=== PATIENT | male | born 1940 ===

== ENCOUNTER 2018-04-06 13:25 | Inpatient (IN) | payer OTHER ==
[2018-04-06] MEDS ORDERED: Sodium Chloride 0.9% 500 ML IV STA (13:57)
[2018-04-06] MEDS ORDERED: Sodium Chloride 0.9% 1,000 ML IV STA ×3 (13:58→16:55)
--- NOTE | 2018-04-06 14:08 | ED PDOC ---
HPI: Trauma/Fall - HPI Time Seen by Provider: 04/06/18 13:44 Chief Complaint (Nursing): Trauma Chief Complaint (Provider): Trauma History/Exam Limitations: no limitations Onset/Duration Of Symptoms: Days (x1) Additional Complaint(s): Josr Saeed is a 77 y/o male with no significant past medical history who presents to the ED for evaluation after a fall. Patient was found by homemaker on the floor after he fell of his bed at 14:00 yesterday. Patient denies any headache, chest pain, and has no active complaints. 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 PMD: Dr. Darin Devine Past Medical History Reviewed: Historical Data, Nursing Documentation, Vital Signs Vital Signs: Last Vital Signs Temp 99.2 F 04/06/18 14:03 Pulse 127 H 04/06/18 14:03 Resp 15 04/06/18 14:03 BP 155/90 H 04/06/18 14:03 Pulse Ox 95 04/06/18 14:03 - Medical History PMH: No Chronic Diseases - Family History Family History: States: Unknown Family Hx - Allergies Allergies/Adverse Reactions: Allergies Allergy/AdvReac Type Severity Reaction Status Date / Time No Known Allergies Allergy Verified 04/06/18 13:34 Review of Systems ROS Statement: Except As Marked, All Systems Reviewed And Found Negative Constitutional: Negative for: Fever Cardiovascular: Negative for: Chest Pain Neurological: Positive for: Weakness (right side). Negative for: Headache Physical Exam - Reviewed Nursing Documentation Reviewed: Yes Vital Signs Reviewed: Yes - Physical Exam Appears: Positive for: No Acute Distress Head Exam: Positive for: ATRAUMATIC, NORMOCEPHALIC Eye Exam: Positive for: Other (constricted pupils bilaterally) Neck: Positive for: Normal, Painless ROM (nontender), Trachea Midline (no midline tenderness) Cardiovascular/Chest: Positive for: Tachycardia (but regular) Respiratory: Positive for: Normal Breath Sounds. Negative for: Respiratory Distress Back: Positive for: Other (ecchymosis on right buttock that looks old). Negative for: L CVA Tenderness, R CVA Tenderness, Vertebral Tenderness Extremity: Positive for: Normal ROM, Other (no hip pain; pelvis stable on rocking) Neurologic/Psych: Positive for: Alert, Oriented - Laboratory Results Result Diagrams: 04/06/18 14:12 04/06/18 14:12 - ECG Interpretation Of ECG: ST @ 128, LAFB, LVH. O2 Sat by Pulse Oximetry: 95 (RA) Pulse Ox Interpretation: Normal Medical Decision Making Medical Decision Making: Time: 13:52 Initial Impression: Fall, r/o Rhabdomyolysis Initial Plan: --VBG --CT - Cervical spine w/o contrast --CT - Head w/o contrast --EKG --CMP --CPK --CBC with differential --PTT --Prothrombin time --CXR --Tylenol 650 mg --Blood culture Time: 15:17 CXR FINDINGS: LUNGS: Coarsened/increased interstitial markings. There is also a localized area of atelectasis and or scarring left CP angle region. PLEURA: No pneumothorax or pleural fluid seen. CARDIOVASCULAR: Heart appears mildly enlarged OSSEOUS STRUCTURES: No significant abnormalities. VISUALIZED UPPER ABDOMEN: Normal. OTHER FINDINGS: None. IMPRESSION: Coarsened/ increased interstitial markings. Atelectasis and or scarring left CP angle region. Time: 15:24 CT - Head FINDINGS: HEMORRHAGE: No intracranial hemorrhage. BRAIN: Moderate diffuse/ confluent chronic periventricular white matter ischemic changes seen extending peripherally into the deep and subcortical white matter both cerebral hemispheres. There is also extension of these changes into the white matter tracts of both basal nuclei with scattered more discrete chronic likely. Moderate generalized volume loss. VENTRICLES: Unremarkable. No hydrocephalus. CALVARIUM: No obvious calvarial fractures. Right supraorbital and right frontal scalp swelling. PARANASAL SINUSES: Unremarkable as visualized. No significant inflammatory changes. MASTOID AIR CELLS: Unremarkable as visualized. No inflammatory changes. OTHER FINDINGS: Changes of bilateral cataract surgery. IMPRESSION: Normal CT of the Head. Time: 15:47 CT Spine FINDINGS: VERTEBRAE: No acute compression fractures nor retropulsed fragments. DISCS/SPINAL CANAL/NEURAL FORAMINA: Multilevel degenerative spondylosis. At the C3-C4 level, there is mild posterior disc space narrowing. No disc herniation or significant disc bulge. The significant right-sided facet arthropathy. Minor left facet overgrowth. Minimal degenerative squaring of the uncovertebral joints more so on the right side. Right exit foramen appears narrowed. At the C4-C5 level, there is also minor disc space narrowing with significant and minor left-sided hypertrophic facet joint changes. Right exit foramen is stenotic. Left exit foramen is marginal to adequate. At the C5-C6 level, there is marked disc space narrowing with endplate eburnation and subchondral sclerosis. Small broad-based osteophytic ridge disc complex contiguous with hyper trophic uncovertebral joints. Facets also hypertrophic. Exit foramina appear narrowed on the left and adequate on the right. PARASPINAL SOFT TISSUES: Unremarkable. OTHER FINDINGS: Vascular calcifications both carotid arteries. There Appears to be mild biapical pleural thickening and some adjacent parenchymal scarring changes. IMPRESSION: The no acute fractures. Multilevel degenerative spondylosis as described. . Time: 16:20 RAD - Hip FINDINGS: BONES: Normal. No fracture. JOINTS: Mild degenerative osteoarthritis both hip joints with joint space narrowing more so on the left side and subchondral sclerosis along both acetabular roofs. SOFT TISSUES: Normal. OTHER FINDINGS: None. IMPRESSION: No evidence of acute displaced fracture nor dislocation. Save Mild degenerative osteoarthritis both hip joints left greater than right. Scribe Attestation: Documented by Joey Goodwin, acting as a scribe for Paula Morales MD. Provider Scribe Attestation: All medical record entries made by the Scribe were at my direction and personally dictated by me. I have reviewed the chart and agree that the record accurately reflects my personal performance of the history, physical exam, medical decision making, and the department course for this patient. I have also personally directed, reviewed, and agree with the discharge instructions and disposition. Disposition - Clinical Impression Clinical Impression: Rhabdomyolysis, Elevated troponin - Patient ED Disposition Is Patient to be Admitted: Yes - Disposition Disposition Time: 16:55 Condition: STABLE - Pt Status Changed To: Hospital Disposition Of: Inpatient - Admit Certification Admit to Inpatient:: After my assessment, the patient will require hospitalization for at least two midnights. This is because of the severity of symptoms shown, intensity of services needed, and/or the medical risk in this patient being treated as an outpatient. - POA Present On Arrival: Falls Or Trauma
[2018-04-06 14:26] LABS: VENOUS BLOOD GAS BASE EXCESS -14.1 mmol/L (0.0-2.0); VENOUS BLOOD GAS PCO2 48 mmHg (40-60); VENOUS BLOOD GAS PO2 48 mm/Hg (30-55); VENOUS BLOOD PH 7.11 (7.32-7.43)
[2018-04-06 14:51] LABS: BASO % 0.2 % (0.0-2.0); HEMOGLOBIN 18.1 g/dL (12.0-18.0); LYMPH # 1.8 K/uL (1.0-4.3); LYMPH % 12.4 % (20.0-40.0); MEAN CELL VOLUME 93.9 fl (80.0-94.0); MEAN CORPUSCULAR HEMOGLOBIN 32.2 pg (27.0-31.0); MEAN CORPUSCULAR HGB CONC 34.2 g/dL (33.0-37.0); MEAN PLATELET VOLUME 9.1 fl (7.2-11.7); MONO # 1.4 K/uL (0.0-0.8); MONO % 9.9 % (0.0-10.0); NEUT # 11.2 K/uL (1.8-7.0); NEUT % 77.5 % (50.0-75.0); NRBC % 0.2 % (0.0-0.0); RBC 5.62 Mil/uL (4.40-5.90); RED CELL DISTRIBUTION WIDTH 14.8 % (11.5-14.5); WHITE BLOOD COUNT 14.5 K/uL (4.8-10.8)
[2018-04-06 15:05] LABS: INR 1.1 (0.9-1.2); PARTIAL THROMBOPLASTIN TIME 30.8 Seconds (25.6-37.1); PROTHROMBIN TIME 11.8 Seconds (9.8-13.1)
[2018-04-06 15:08] LABS: ALB/GLOB RATIO 1.2 (1.0-2.1); ALBUMIN 4.7 g/dL (3.5-5.0); CALCIUM 10.2 mg/dL (8.4-10.2)
--- NOTE | 2018-04-06 15:19 | RAD ---
Date of service: 04/06/2018 PROCEDURE: CHEST RADIOGRAPH, 1 VIEW HISTORY: Fall COMPARISON: None available. FINDINGS: LUNGS: Coarsened/increased interstitial markings. There is also a localized area of atelectasis and or scarring left CP angle region. PLEURA: No pneumothorax or pleural fluid seen. CARDIOVASCULAR: Heart appears mildly enlarged OSSEOUS STRUCTURES: No significant abnormalities. VISUALIZED UPPER ABDOMEN: Normal. OTHER FINDINGS: None. IMPRESSION: Coarsened/ increased interstitial markings. Atelectasis and or scarring left CP angle region.
--- NOTE | 2018-04-06 15:26 | CT ---
Date of service: 04/06/2018 PROCEDURE: CT HEAD WITHOUT CONTRAST. HISTORY: Fall COMPARISON: None available. TECHNIQUE: Axial computed tomography images were obtained through the head/brain without intravenous contrast. Radiation dose: Total exam DLP = 853.44 mGy-cm. This CT exam was performed using one or more of the following dose reduction techniques: Automated exposure control, adjustment of the mA and/or kV according to patient size, and/or use of iterative reconstruction technique. FINDINGS: HEMORRHAGE: No intracranial hemorrhage. BRAIN: Moderate diffuse/ confluent chronic periventricular white matter ischemic changes seen extending peripherally into the deep and subcortical white matter both cerebral hemispheres. There is also extension of these changes into the white matter tracts of both basal nuclei with scattered more discrete chronic likely. Moderate generalized volume loss. VENTRICLES: Unremarkable. No hydrocephalus. CALVARIUM: No obvious calvarial fractures. Right supraorbital and right frontal scalp swelling. PARANASAL SINUSES: Unremarkable as visualized. No significant inflammatory changes. MASTOID AIR CELLS: Unremarkable as visualized. No inflammatory changes. OTHER FINDINGS: Changes of bilateral cataract surgery. IMPRESSION: Normal CT of the Head.
--- NOTE | 2018-04-06 15:49 | CT ---
Date of service: 04/06/2018 PROCEDURE: CT Cervical Spine without contrast HISTORY: Fall COMPARISON: None available. TECHNIQUE: Axial computed tomography images were obtained of the cervical spine without the use of intravenous contrast. Coronal and sagittal reformatted images were created and reviewed. Radiation dose: Total exam DLP = 461.58 mGy-cm. This CT exam was performed using one or more of the following dose reduction techniques: Automated exposure control, adjustment of the mA and/or kV according to patient size, and/or use of iterative reconstruction technique. FINDINGS: VERTEBRAE: No acute compression fractures nor retropulsed fragments. DISCS/SPINAL CANAL/NEURAL FORAMINA: Multilevel degenerative spondylosis. At the C3-C4 level, there is mild posterior disc space narrowing. No disc herniation or significant disc bulge. The significant right-sided facet arthropathy. Minor left facet overgrowth. Minimal degenerative squaring of the uncovertebral joints more so on the right side. Right exit foramen appears narrowed. At the C4-C5 level, there is also minor disc space narrowing with significant and minor left-sided hypertrophic facet joint changes. Right exit foramen is stenotic. Left exit foramen is marginal to adequate. At the C5-C6 level, there is marked disc space narrowing with endplate eburnation and subchondral sclerosis. Small broad-based osteophytic ridge disc complex contiguous with hyper trophic uncovertebral joints. Facets also hypertrophic. Exit foramina appear narrowed on the left and adequate on the right. PARASPINAL SOFT TISSUES: Unremarkable. OTHER FINDINGS: Vascular calcifications both carotid arteries. There Appears to be mild biapical pleural thickening and some adjacent parenchymal scarring changes. IMPRESSION: The no acute fractures. Multilevel degenerative spondylosis as described. .
--- NOTE | 2018-04-06 16:22 | RAD ---
PROCEDURE: Right Hip Radiographs. HISTORY: Fall COMPARISON: None. FINDINGS: BONES: Normal. No fracture. JOINTS: Mild degenerative osteoarthritis both hip joints with joint space narrowing more so on the left side and subchondral sclerosis along both acetabular roofs. SOFT TISSUES: Normal. OTHER FINDINGS: None. IMPRESSION: No evidence of acute displaced fracture nor dislocation. Save Mild degenerative osteoarthritis both hip joints left greater than right.
[2018-04-06 17:06] LABS: GRANULAR CAST 3 /lpf (0-1); SQUAMOUS EPITHIAL < 1 /hpf (0-5); URINE AMORPHOUS SEDIMENT RARE /ul (<OCC); URINE BACTERIA RARE (<OCC); URINE BILIRUBIN NEGATIVE (NEGATIVE); URINE BLOOD LARGE (NEGATIVE); URINE CLARITY CLOUDY (Clear); URINE COLOR AMBER (YELLOW); URINE GLUCOSE (UA) NEG (Normal); URINE LEUKOCYTE ESTERASE NEG Leu/uL (Negative); URINE PROTEIN 100 mg/dL (NEGATIVE); URINE UROBILINOGEN 0.2-1.0 mg/dL (0.2-1.0)
[2018-04-06] MEDS ORDERED: Fluconazole 150 MG TAB PO STA (17:17)
--- NOTE | 2018-04-06 17:24 | CP.PCM.HP ---
History of Present Illness - History of Present Illness History of Present Illness: 77 yo male with history of HTN and previous CVA fell from his bed yesterday around 2pm and was unable to get up until homemaker found him on the floor this morning. Patient denied LOC or getting injured from the fall. He has been bed bound since suffering from stroke leaving him with slurred speech and right sided weakness. There was no chest pain, SOB or dizziness. Present on Admission - Present on Admission Any Indicators Present on Admission: No History of DVT/PE: No History of Uncontrolled Diabetes: No Urinary Catheter: No Decubitus Ulcer Present: No Review of Systems - Review of Systems All systems: reviewed and no additional remarkable complaints except (aside from those mentioned above, 12 point system review were negative by me) Past Patient History - Tetanus Immunizations Tetanus Immunization: Unknown - Past Social History Smoking Status: Never Smoked Chewing Tobacco Use: No Cigar Use: No Alcohol: None Drugs: Denies Home Situation {Lives}: Alone - CARDIAC Hx Hypertension: Yes - PULMONARY Hx Respiratory Disorders: No - NEUROLOGICAL HX Cerebrovascular Accident: Yes - HEENT Hx HEENT Problems: No - RENAL Hx Chronic Kidney Disease: No - ENDOCRINE/METABOLIC Hx Endocrine Disorders: No - HEMATOLOGICAL/ONCOLOGICAL Hx Blood Disorders: No - INTEGUMENTARY Hx Dermatological Problems: No - MUSCULOSKELETAL/RHEUMATOLOGICAL Hx Musculoskeletal Disorders: No - GASTROINTESTINAL Hx Gastrointestinal Disorders: No - GENITOURINARY/GYNECOLOGICAL Hx Genitourinary Disorders: No - PSYCHIATRIC Hx Psychophysiologic Disorder: No Hx Substance Use: No - SURGICAL HISTORY Hx Surgeries: No - ANESTHESIA Hx Anesthesia: No Meds Allergies/Adverse Reactions: Allergies Allergy/AdvReac Type Severity Reaction Status Date / Time No Known Allergies Allergy Verified 04/06/18 13:34 Physical Exam - Constitutional Appears: No Acute Distress - Head Exam Head Exam: ATRAUMATIC - Eye Exam Eye Exam: absent: Scleral icterus - ENT Exam ENT Exam: Mucous Membranes Moist - Neck Exam Neck exam: Negative for: Meningismus - Respiratory Exam Respiratory Exam: absent: Rales, Rhonchi, Wheezes, Respiratory Distress - Cardiovascular Exam Cardiovascular Exam: Tachycardia, +S1, +S2 - GI/Abdominal Exam GI & Abdominal Exam: Soft. absent: Tenderness - Rectal Exam Rectal Exam: Deferred - Extremities Exam Extremities exam: Negative for: calf tenderness, pedal edema - Back Exam Back exam: NORMAL INSPECTION - Neurological Exam Neurological exam: Alert, Oriented x3 - Psychiatric Exam Psychiatric exam: Normal Affect - Skin Skin Exam: Dry, Intact Results - Vital Signs Recent Vital Signs: Last Vital Signs Temp 98.3 F 04/06/18 15:42 Pulse 122 H 04/06/18 15:42 Resp 15 04/06/18 15:42 BP 129/76 04/06/18 15:42 Pulse Ox 95 04/06/18 17:10 - Labs Result Diagrams: 04/06/18 14:12 04/06/18 14:12 Labs: Laboratory Results - last 24 hr 04/06/18 04/06/18 04/06/18 14:00 14:12 14:12 WBC 14.5 H RBC 5.62 Hgb 18.1 H Hct 52.8 H MCV 93.9 MCH 32.2 H MCHC 34.2 RDW 14.8 H Plt Count 260 MPV 9.1 Neut % (Auto) 77.5 H Lymph % (Auto) 12.4 L Pike % (Auto) 9.9 Eos % (Auto) 0.0 Baso % (Auto) 0.2 Neut # (Auto) 11.2 H Lymph # (Auto) 1.8 Pike # (Auto) 1.4 H Eos # (Auto) 0.0 Baso # (Auto) 0.0 PT INR APTT pO2 VBG pH VBG pCO2 VBG HCO3 VBG Total CO2 VBG O2 Sat (Calc) VBG Base Excess Glucose Lactate FiO2 Blood Gas Comments Crit Value Called To Crit Value Called By Crit Value Read Back Blood Gas Notified Time Sodium 148 Potassium 4.5 Chloride 111 H Carbon Dioxide 17 L Anion Gap 25 H BUN 46 H Creatinine 1.7 H Est GFR ( Amer) 47 Est GFR (Non-Af Amer) 39 POC Glucose (mg/dL) 150 H Random Glucose 162 H Calcium 10.2 Total Bilirubin 1.3 AST 831 H ALT 253 H Alkaline Phosphatase 179 H Total Creatine Kinase 09162 H Total Protein 8.5 H Albumin 4.7 Globulin 3.8 Albumin/Globulin Ratio 1.2 Urine Color Urine Clarity Urine pH Ur Specific [place] Urine Protein Urine Glucose (UA) Urine Ketones Urine Blood Urine Nitrate Urine Bilirubin Urine Urobilinogen Ur Leukocyte Esterase Urine RBC (Auto) Ur Squamous Epith Cells Amorphous Sediment Urine Bacteria Granular Casts (Auto) Urine Yeast (Budding) 04/06/18 04/06/18 04/06/18 14:12 14:16 16:50 WBC RBC Hgb Hct MCV MCH MCHC RDW Plt Count MPV Neut % (Auto) Lymph % (Auto) Pike % (Auto) Eos % (Auto) Baso % (Auto) Neut # (Auto) Lymph # (Auto) Pike # (Auto) Eos # (Auto) Baso # (Auto) PT 11.8 INR 1.1 APTT 30.8 pO2 48 VBG pH 7.11 L* VBG pCO2 48 VBG HCO3 13.1 VBG Total CO2 16.7 L VBG O2 Sat (Calc) 78.8 H VBG Base Excess -14.1 L Glucose 164 H Lactate 3.0 H FiO2 21.0 Blood Gas Comments Lact=3.0 Crit Value Called To dorian Reid Crit Value Called By 22 Crit Value Read Back Y Blood Gas Notified Time 1425 Sodium 124.0 L Potassium Chloride 101.0 Carbon Dioxide Anion Gap BUN Creatinine Est GFR ( Amer) Est GFR (Non-Af Amer) POC Glucose (mg/dL) Random Glucose Calcium Total Bilirubin AST ALT Alkaline Phosphatase Total Creatine Kinase Total Protein Albumin Globulin Albumin/Globulin Ratio Urine Color Noemi Urine Clarity Cloudy Urine pH 5.0 Ur Specific [place] 1.021 Urine Protein 100 Urine Glucose (UA) Neg Urine Ketones 20 Urine Blood Large Urine Nitrate Negative Urine Bilirubin Negative Urine Urobilinogen 0.2-1.0 Ur Leukocyte Esterase Neg Urine RBC (Auto) 3 Ur Squamous Epith Cells < 1 Amorphous Sediment Rare H Urine Bacteria Rare Granular Casts (Auto) 3 Urine Yeast (Budding) Few H Assessment & Plan - Assessment and Plan (Free Text) Assessment: 77 yo male with history of HTN and previous CVA fell from his bed yesterday around 2pm and was unable to get up until homemaker found him on the floor this morning. Patient denied LOC or getting injured from the fall. He has been bed bound since suffering from stroke leaving him with slurred speech and right sided weakness. There was no chest pain, SOB or dizziness. 1. Rhabdomyolysis IV hydration with NSS 150cc/hr repeat CPK 2. Elevated Troponin Troponin q 8 hrs x 2 EKG: sinus tach with left ant fascicular block no previous EKG on board to compare with ASA 325mg PO Lopressor 50mg PO q 12hrs cardiology consult with Dr JDamle 3. Leukocytosis probably reactive and also from volume depletion repeat CBC in am 4. HTN BP stable on Lopressor 50mg PO q 12hrs 5. DVT prophylaxis venodyne boots while in bed
[2018-04-06] MEDS: Sodium Chloride 0.45% 1,000 ML IV SCH (20:22)
[2018-04-07] MEDS: Sodium Chloride 0.45% 1,000 ML IV SCH ×2 (01:35→06:42)
[2018-04-07 06:31] LABS: BASO % 0.1 % (0.0-2.0); HEMOGLOBIN 14.9 g/dL (12.0-18.0); LYMPH # 1.7 K/uL (1.0-4.3); LYMPH % 15.4 % (20.0-40.0); MEAN CORPUSCULAR HEMOGLOBIN 32.5 pg (27.0-31.0); MEAN CORPUSCULAR HGB CONC 34.6 g/dL (33.0-37.0); MEAN PLATELET VOLUME 8.7 fl (7.2-11.7); MONO # 1.3 K/uL (0.0-0.8); MONO % 11.6 % (0.0-10.0); NEUT % 72.9 % (50.0-75.0); RBC 4.58 Mil/uL (4.40-5.90); RED CELL DISTRIBUTION WIDTH 14.7 % (11.5-14.5)
[2018-04-07 06:45] LABS: LDL CHOLESTEROL 81 mg/dL (0-129)
[2018-04-07 07:00] LABS: BLOOD UREA NITROGEN 32 mg/dl (9-20); CALCIUM 8.1 mg/dL (8.4-10.2); GFR AFRICAN-AMERICAN > 60; GFR NON-AFRICAN AMERICAN > 60; HDL CHOLESTEROL 26 MG/DL (30-70)
--- NOTE | 2018-04-07 08:12 | CP.PCM.PN ---
Subjective - Date & Time of Evaluation Date of Evaluation: 04/07/18 Time of Evaluation: 08:12 - Subjective Subjective: Pt was stable this morning and had no complaints on initial evaluation, denied chest pain sob calf tenderness ANATOMICAL EMBALMER was called later in the morning for acute pulmonary edema due to fluid overload and positioning. Patient desaturated to low 90s had tachypnea, tachycardia, normotensive and responded well to diuresis and is now comfortable and in no acute distress. hd stable. Objective - Vital Signs/Intake and Output Vital Signs (last 24 hours): Temp Pulse Resp BP Pulse Ox 98.3 F 118 H 18 155/79 H 96 04/07/18 07:53 04/07/18 07:53 04/07/18 07:53 04/07/18 07:53 04/07/18 07:53 Intake and Output: 04/07/18 04/07/18 06:59 18:59 Intake Total 2700 Output Total 1700 Balance 1000 Vitals Reviewed GEN: WDWN, alert, cooperative HEENT: NCAT, PERRL, EOMI HEART: RRR, +S1S2, NO MRG LUNG: crackles bilaterally ABD: soft, NT, ND, No HSM, No masses EXT: normal pedal pulses, normal capillary refill NEURO: awake, alert, no focal deficits SKIN: warm, dry PSYCH: normal mood, normal affect - Medications Medications: Current Medications Acetaminophen (Tylenol 325mg Tab) 650 mg PO Q6 PRN PRN Reason: Pain, Mild (1-3) Last Admin: 04/07/18 01:07 Dose: 650 mg Aspirin (Aspirin Chewable) 81 mg PO DAILY [facility] Clopidogrel Bisulfate (Plavix) 75 mg PO DAILY [facility] Docusate Sodium (Colace) 100 mg PO BID PRN PRN Reason: Constipation Sodium Chloride (Sodium Chloride 0.45%) 1,000 mls @ 200 mls/hr IV .Q5H IAN Stop: 04/07/18 11:14 Last Admin: 04/07/18 06:42 Dose: 200 mls/hr Pantoprazole Sodium (Protonix Ec Tab) 40 mg PO DAILY [facility] - Labs Labs: 04/07/18 04:20 04/07/18 04:20 PT 11.8 Seconds (9.8-13.1) 04/06/18 14:12 INR 1.1 (0.9-1.2) 04/06/18 14:12 APTT 30.8 Seconds (25.6-37.1) 04/06/18 14:12 Assessment and Plan - Assessment and Plan (Free Text) Plan: 77 yo male with history of HTN and previous CVA fell from his bed yesterday around 2pm and was unable to get up until homemaker found him on the floor this morning. Patient denied LOC or getting injured from the fall. He has been bed bound since suffering from stroke leaving him with slurred speech and right sided weakness. There was no chest pain, SOB or dizziness. 04/07: - ANATOMICAL EMBALMER called for acute pulmonary edema due to fluid overload and orthopnea during repositioning, patient was near trendelenberg. - He became mildly hypoxic, tachypneic, tachycardic, maintaining pressures. - He had received appx 4 liters of fluid over 24 hours. - ECHO showed combined systolic and diastolic dysfunction, patient responded well to lasix and is now comfortable. - Given hypoxia, tachycardia, rhabdo due to fall and extended down time, increasing risk for DVT, dimer was sent and was positive. CTA was negative for PE. - Patient is now saturating 98 on room air, no longer tachycardic. Patient was febrile 101.8, possibly due to stress reaction of acute pulm edema, as pt did not have any L shift/bands - procalcitonin is pending. - UA was neg on admission, CXR/CT no obvious infiltrates, all cultures collected and pending. - Lactic acid secondary to rhabdo. 1. Rhabdomyolysis holding hydration due to acute on chronic combined systolic and diastolic heart failure - gentle hydration tomorrow pending renal function per discussion with Cardiology Dr. Fontana, appreciated repeat CPK tomorrow lactic acidosis expected 2. Elevated Troponin Troponin q 8 hrs x 2 EKG: sinus tach with left ant fascicular block no previous EKG on board to compare with ASA 325mg PO Lopressor 50mg PO q 12hrs cardiology consult with Dr Cortés 3. Leukocytosis probably reactive and also from volume depletion repeat CBC in am 4. HTN BP stable on Lopressor 50mg PO q 12hrs 5. Acute Pulmonary edema received lasix resolved fever 101.8 likely secondary to stress reaction from acute pulmonary edema DVT prophylaxis venodyne boots while in bed
[2018-04-07] MEDS: Pantoprazole 40 mg EC Tab PO SCH (09:11)
[2018-04-07] MEDS: Metoprolol Succinate 25 mg XL Tab PO SCH (09:30)
--- NOTE | 2018-04-07 09:46 | CP.PCM.CON ---
History of Present Illness - History of Present Illness History of Present Illness: This 77-year-old man who has had a history of right hemiplegia with severe dysphasia, and has had a bed and chair bound existence for approximately 10 years came into the emergency room after being found on the floor following a fall when he could not help himself to get up. He spent more than 12 hours on the floor and was finally brought in by emergency manager of medical and police who forced their way through a locked door. The patient denies any palpitations or chest pains or symptoms of congestive cardiac failure. He denies any history of diabetes and denies previous falls. Physical examination shows an elderly man who has significant speech deficit but he is able to understand and express himself quite well. He answers questions appropriately. He was afebrile and was able to breathe comfortably while propped up in bed with a respiratory rate of 16-18 breaths per minute and a heart rate of 88 bpm and regular. His blood pressure was 126/74 mmHg. His jugular venous pressure was mildly elevated and there was no edema over his lower extremity. His pedal pulses were well felt. There were no carotid bruits. Extremities were warm and nailbeds were pink. There was no central or peripheral cyanosis. There was no clubbing. The apex was not palpable. The first and second heart sounds were distant and a faint S3 gallop was audible. There were a few basal rales. Abdomen was soft and liver and spleen are not palpable. His electrocardiogram showed sinus tachycardia with QRS widths which was 110 ms. There were nonspecific ST-T wave changes and Q waves in V2 suggestive of an old septal wall myocardial infarction. His lab data showed marked dehydration at the time of admission to the hospital with hemoglobin and hematocrit of 18 g and 52% respectively with elevated creatinine at 1.7 mg percent the rest of his labs were noted. serum creatinine kinase was markedly elevated indicating rhabdomyolysis. His troponin levels were also elevated. Impression: Rhabdomyolysis secondary to skeletal muscle injury. Severe dehydration which appears to be resolving. 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 In the meantime I have withheld his intravenous fluids since his jugular venous pressure appears mildly elevated. Past Patient History - Tetanus Immunizations Tetanus Immunization: Unknown - Past Medical History & Family History Past Medical History?: Yes - Past Social History Smoking Status: Never Smoked - CARDIAC Hx Cardiac Disorders: Yes Hx Hypertension: Yes - PULMONARY Hx Respiratory Disorders: No - NEUROLOGICAL Hx Neurological Disorder: Yes HX Cerebrovascular Accident: Yes - HEENT Hx HEENT Problems: No - RENAL Hx Chronic Kidney Disease: No - ENDOCRINE/METABOLIC Hx Endocrine Disorders: No - HEMATOLOGICAL/ONCOLOGICAL Hx Blood Disorders: No - INTEGUMENTARY Hx Dermatological Problems: No - MUSCULOSKELETAL/RHEUMATOLOGICAL Hx Musculoskeletal Disorders: Yes Hx Falls: Yes Hx Rhabdomyolysis: Yes - GASTROINTESTINAL Hx Gastrointestinal Disorders: No - GENITOURINARY/GYNECOLOGICAL Hx Genitourinary Disorders: No - PSYCHIATRIC Hx Psychophysiologic Disorder: No Hx Substance Use: No - SURGICAL HISTORY Hx Surgeries: Yes Hx Cataract Extraction: Yes (bilateral) - ANESTHESIA Hx Anesthesia: Yes Hx Anesthesia Reactions: No Hx Malignant Hyperthermia: No Meds Allergies/Adverse Reactions: Allergies Allergy/AdvReac Type Severity Reaction Status Date / Time No Known Allergies Allergy Verified 04/06/18 13:34 - Medications Medications: Current Medications Acetaminophen (Tylenol 325mg Tab) 650 mg PO Q6 PRN PRN Reason: Pain, Mild (1-3) Last Admin: 04/07/18 01:07 Dose: 650 mg Aspirin (Aspirin Chewable) 81 mg PO DAILY [facility] Last Admin: 04/07/18 09:27 Dose: 81 mg Clopidogrel Bisulfate (Plavix) 75 mg PO DAILY [facility] Last Admin: 04/07/18 09:27 Dose: 75 mg Docusate Sodium (Colace) 100 mg PO BID PRN PRN Reason: Constipation Sodium Chloride (Sodium Chloride 0.45%) 1,000 mls @ 200 mls/hr IV .Q5H [facility] Stop: 04/07/18 11:14 Last Admin: 04/07/18 06:42 Dose: 200 mls/hr Metoprolol Succinate (Toprol Xl) 25 mg PO DAILY [facility] Last Admin: 04/07/18 09:30 Dose: 25 mg Pantoprazole Sodium (Protonix Ec Tab) 40 mg PO DAILY [facility] Last Admin: 04/07/18 09:11 Dose: 40 mg Results - Vital Signs Recent Vital Signs: Last Vital Signs Temp 98.3 F 04/07/18 07:53 Pulse 118 H 04/07/18 09:30 Resp 18 04/07/18 07:53 BP 155/79 H 04/07/18 09:30 Pulse Ox 96 04/07/18 07:53 - Labs Result Diagrams: 04/07/18 04:20 04/07/18 04:20 Labs: Laboratory Results - last 24 hr 04/06/18 04/06/18 04/06/18 14:00 14:12 14:12 WBC 14.5 H RBC 5.62 Hgb 18.1 H Hct 52.8 H MCV 93.9 MCH 32.2 H MCHC 34.2 RDW 14.8 H Plt Count 260 MPV 9.1 Neut % (Auto) 77.5 H Lymph % (Auto) 12.4 L [place] % (Auto) 9.9 Eos % (Auto) 0.0 Baso % (Auto) 0.2 Neut # (Auto) 11.2 H Lymph # (Auto) 1.8 [place] # (Auto) 1.4 H Eos # (Auto) 0.0 Baso # (Auto) 0.0 PT INR APTT pO2 VBG pH VBG pCO2 VBG HCO3 VBG Total CO2 VBG O2 Sat (Calc) VBG Base Excess Glucose Lactate FiO2 Blood Gas Comments Crit Value Called To Crit Value Called By Crit Value Read Back Blood Gas Notified Time Sodium 148 Potassium 4.5 Chloride 111 H Carbon Dioxide 17 L Anion Gap 25 H BUN 46 H Creatinine 1.7 H Est GFR ( Amer) 47 Est GFR (Non-Af Amer) 39 POC Glucose (mg/dL) 150 H Random Glucose 162 H Calcium 10.2 Total Bilirubin 1.3 AST 831 H ALT 253 H Alkaline Phosphatase 179 H Total Creatine Kinase 06516 H Troponin I Total Protein 8.5 H Albumin 4.7 Globulin 3.8 Albumin/Globulin Ratio 1.2 Triglycerides Cholesterol LDL Cholesterol Direct HDL Cholesterol TSH 3rd Generation Urine Color Urine Clarity Urine pH Ur Specific [place] Urine Protein Urine Glucose (UA) Urine Ketones Urine Blood Urine Nitrate Urine Bilirubin Urine Urobilinogen Ur Leukocyte Esterase Urine RBC (Auto) Ur Squamous Epith Cells Amorphous Sediment Urine Bacteria Granular Casts (Auto) Urine Yeast (Budding) 04/06/18 04/06/18 04/06/18 14:12 14:16 16:50 WBC RBC Hgb Hct MCV MCH MCHC RDW Plt Count MPV Neut % (Auto) Lymph % (Auto) [place] % (Auto) Eos % (Auto) Baso % (Auto) Neut # (Auto) Lymph # (Auto) [place] # (Auto) Eos # (Auto) Baso # (Auto) PT 11.8 INR 1.1 APTT 30.8 pO2 48 VBG pH 7.11 L* VBG pCO2 48 VBG HCO3 13.1 VBG Total CO2 16.7 L VBG O2 Sat (Calc) 78.8 H VBG Base Excess -14.1 L Glucose 164 H Lactate 3.0 H FiO2 21.0 Blood Gas Comments Lact=3.0 Crit Value Called To dorian Reid Crit Value Called By 22 Crit Value Read Back Y Blood Gas Notified Time 1425 Sodium 124.0 L Potassium Chloride 101.0 Carbon Dioxide Anion Gap BUN Creatinine Est GFR ( Amer) Est GFR (Non-Af Amer) POC Glucose (mg/dL) Random Glucose Calcium Total Bilirubin AST ALT Alkaline Phosphatase Total Creatine Kinase Troponin I Total Protein Albumin Globulin Albumin/Globulin Ratio Triglycerides Cholesterol LDL Cholesterol Direct HDL Cholesterol TSH 3rd Generation Urine Color Noemi Urine Clarity Cloudy Urine pH 5.0 Ur Specific [place] 1.021 Urine Protein 100 Urine Glucose (UA) Neg Urine Ketones 20 Urine Blood Large Urine Nitrate Negative Urine Bilirubin Negative Urine Urobilinogen 0.2-1.0 Ur Leukocyte Esterase Neg Urine RBC (Auto) 3 Ur Squamous Epith Cells < 1 Amorphous Sediment Rare H Urine Bacteria Rare Granular Casts (Auto) 3 Urine Yeast (Budding) Few H 04/06/18 04/06/18 04/07/18 16:50 19:03 01:09 WBC RBC Hgb Hct MCV MCH MCHC RDW Plt Count MPV Neut % (Auto) Lymph % (Auto) [place] % (Auto) Eos % (Auto) Baso % (Auto) Neut # (Auto) Lymph # (Auto) [place] # (Auto) Eos # (Auto) Baso # (Auto) PT INR APTT pO2 VBG pH VBG pCO2 VBG HCO3 VBG Total CO2 VBG O2 Sat (Calc) VBG Base Excess Glucose Lactate FiO2 Blood Gas Comments Crit Value Called To Crit Value Called By Crit Value Read Back Blood Gas Notified Time Sodium Potassium Chloride Carbon Dioxide Anion Gap BUN Creatinine Est GFR ( Amer) Est GFR (Non-Af Amer) POC Glucose (mg/dL) Random Glucose Calcium Total Bilirubin AST ALT Alkaline Phosphatase Total Creatine Kinase Troponin I 0.4850 H* 0.4400 H* 0.3870 H* Total Protein Albumin Globulin Albumin/Globulin Ratio Triglycerides Cholesterol LDL Cholesterol Direct HDL Cholesterol TSH 3rd Generation Urine Color Urine Clarity Urine pH Ur Specific [place] Urine Protein Urine Glucose (UA) Urine Ketones Urine Blood Urine Nitrate Urine Bilirubin Urine Urobilinogen Ur Leukocyte Esterase Urine RBC (Auto) Ur Squamous Epith Cells Amorphous Sediment Urine Bacteria Granular Casts (Auto) Urine Yeast (Budding) 04/07/18 04/07/18 04:20 04:20 WBC 11.0 H RBC 4.58 Hgb 14.9 D Hct 43.0 MCV 94.0 MCH 32.5 H MCHC 34.6 RDW 14.7 H Plt Count 209 MPV 8.7 Neut % (Auto) 72.9 Lymph % (Auto) 15.4 L [place] % (Auto) 11.6 H Eos % (Auto) 0.0 Baso % (Auto) 0.1 Neut # (Auto) 8.0 H Lymph # (Auto) 1.7 [place] # (Auto) 1.3 H Eos # (Auto) 0.0 Baso # (Auto) 0.0 PT INR APTT pO2 VBG pH VBG pCO2 VBG HCO3 VBG Total CO2 VBG O2 Sat (Calc) VBG Base Excess Glucose Lactate FiO2 Blood Gas Comments Crit Value Called To Crit Value Called By Crit Value Read Back Blood Gas Notified Time Sodium 140 Potassium 3.9 Chloride 110 H Carbon Dioxide 19 L Anion Gap 15 BUN 32 H Creatinine 1.1 Est GFR ( Amer) > 60 Est GFR (Non-Af Amer) > 60 POC Glucose (mg/dL) Random Glucose 113 H Calcium 8.1 L Total Bilirubin AST ALT Alkaline Phosphatase Total Creatine Kinase 04874 H Troponin I Total Protein Albumin Globulin Albumin/Globulin Ratio Triglycerides 166 H Cholesterol 154 LDL Cholesterol Direct 81 HDL Cholesterol 26 L TSH 3rd Generation 0.45 L Urine Color Urine Clarity Urine pH Ur Specific [place] Urine Protein Urine Glucose (UA) Urine Ketones Urine Blood Urine Nitrate Urine Bilirubin Urine Urobilinogen Ur Leukocyte Esterase Urine RBC (Auto) Ur Squamous Epith Cells Amorphous Sediment Urine Bacteria Granular Casts (Auto) Urine Yeast (Budding)
--- NOTE | 2018-04-07 10:05 | CARD ---
APPROVED REPORT Date of service: 04/06/2018 EKG Measurement Heart [id number] 136P53 [id number] <Conclusion> Sinus tachycardia Left anterior fascicular block Left ventricular hypertrophy with repolarization abnormality Cannot rule out Septal infarct, age undetermined Abnormal ECG
--- NOTE | 2018-04-07 10:37 | CARD ---
APPROVED REPORT Date of service: 04/07/2018 EKG Measurement Heart [id number] [place] 136P60 [id number] <Conclusion> Sinus tachycardia Incomplete right bundle branch block Left anterior fascicular block Moderate voltage criteria for LVH, may be normal variant Abnormal ECG
--- NOTE | 2018-04-07 11:15 | CT ---
Date of service: 04/06/2018 PROCEDURE: CT Abdomen and Pelvis without intravenous contrast HISTORY: Elevated LFTs COMPARISON: None. TECHNIQUE: Unenhanced study. Neither oral nor intravenous contrast administered. Radiation dose: Total exam DLP = 501.89 mGy-cm. This CT exam was performed using one or more of the following dose reduction techniques: Automated exposure control, adjustment of the mA and/or kV according to patient size, and/or use of iterative reconstruction technique. FINDINGS: LOWER THORAX: Unremarkable. LIVER: Unremarkable. No gross lesion or ductal dilatation. GALLBLADDER AND BILE DUCTS: Unremarkable. PANCREAS: Unremarkable. No gross lesion or ductal dilatation. SPLEEN: Unremarkable. ADRENALS: Unremarkable. No mass. KIDNEYS AND URETERS: Unremarkable. No hydronephrosis. No solid mass. VASCULATURE: Unremarkable. No aortic aneurysm. BOWEL: Constipation without fecal impaction or obstruction. APPENDIX: No abnormalities to suggest acute appendicitis. No right lower quadrant inflammatory processes identified. PERITONEUM: Unremarkable. No free fluid. No free air. LYMPH NODES: Unremarkable. No enlarged lymph nodes. BLADDER: Whitney catheter decompresses urinary bladder. REPRODUCTIVE: Unremarkable. BONES: No acute fracture. OTHER FINDINGS: None. IMPRESSION: No acute findings related to/accounting for the clinical presentation. Additional benign and/or incidental findings described above. Concordant results (preliminary interpretation) provided by [facility]. Procedure Completed: 18:20. Preliminary ([facility]) Report: Dictated and Authenticated: 19:30. Final Interpretation: 11:13. April 07, 2018.
[2018-04-07] MEDS ORDERED: Sodium Chloride 3% for Inhalation 4 ML VIAL.NEB IH PRN (12:55)
[2018-04-07 13:07] LABS: ABG ALLEN TEST YES; ARTERIAL BLOOD GAS HCO3 21.6 mmol/L (21-28); ARTERIAL BLOOD GAS O2 SAT 98.7 % (95-98); ARTERIAL BLOOD GAS PCO2 29 mm/Hg (35-45); ARTERIAL BLOOD GAS PH 7.42 (7.35-7.45); ARTERIAL BLOOD GAS PO2 94 mm/Hg (80-100); ARTERIAL BLOOD GAS TCO2 19.7 mmol/L (22-28)
--- NOTE | 2018-04-07 13:13 | PCM.RRT ---
MEDICAL LABORATORY MANAGER Nurse Assessment - Situation MEDICAL LABORATORY MANAGER Reason for Call: Tachycardia, Respiratory Distress I.Reason for MEDICAL LABORATORY MANAGER - A) Acute Change in Patient: (Select all that apply): Staff member or family is worried about patient, Acute change in heart rate less than 50 or greater than 120 Subjective: 77 Y/O male with PMHx of HTN and dementia complains of shaking and diaphoresis. MEDICAL LABORATORY MANAGER was called. BP - 149/84, T 101.8, O2 sat 95%, RR 26, HR 126. Code Sepsis called due to tachycardia, tachypnea and fever. CBC, BMP, U/A, urine culture, blood culture, sputum culture, D-Dimer, ABG, VBG, coagulation panel and troponins ordered. EKG done showed Sinus tachycadia. No acute ST changes. CXR done STAT reviewed showed blunter CP angle, no obvious consolidation. Likely pulmonary edema due to fluid overload.(preliminary). Will get CT angio to r/o PE. Urine output about 700 ml in bag. Pt given Lasix 40 mg, bed elevated and tylenol 625 mg given PO. Possible etiology of CAP/UTI/PE. Rechecked in 15 mins showed improvement in breathing. No distress. F/U labs, CT , cultures. Pt to remain in telemetry for continuous monitoring. - Neurological Status (Select all that apply): Alert, Responsive, Oriented, Verbal, Follows Commands - Respiratory Oxygen Delivery Method: Nasal Cannula @L/min - Constitutional Appears: In Acute Distress - Head Head Exam: ATRAUMATIC, NORMAL INSPECTION, NORMOCEPHALIC - Eyes Eye Exam: EOMI, Normal appearance, PERRL - Respiratory Exam Respiratory Exam: Respiratory Distress (Respiratory distress initially which resolved with bed elevation and lasix). absent: Rales, Rhonchi, Wheezes - Cardiovascular Exam Cardiovascular Exam: Tachycardia, REGULAR RHYTHM, +S1, +S2. absent: Murmur - Neurological Exam Neurological Exam: Alert, Awake, Oriented x3 - Extremities Exam Extremities Exam: absent: Calf Tenderness, Tenderness Plan - Assessment of Findings&Treatment Plan 77 Y/O male with PMHx of HTN and dementia complains of shaking and diaphoresis. MEDICAL LABORATORY MANAGER was called Pending Labs, cultures, UA CT angio. CXR reviewed Pt reevaluated 15 mins later with improvement in breathing. Pt to remain in telemetry. Will continue management and monitoring.
[2018-04-07 13:28] LABS: BASO % 0.3 % (0.0-2.0); HEMOGLOBIN 15.3 g/dL (12.0-18.0); LYMPH # 2.1 K/uL (1.0-4.3); LYMPH % 20.2 % (20.0-40.0); MEAN CELL VOLUME 92.7 fl (80.0-94.0); MEAN CORPUSCULAR HEMOGLOBIN 31.9 pg (27.0-31.0); MEAN CORPUSCULAR HGB CONC 34.4 g/dL (33.0-37.0); MEAN PLATELET VOLUME 8.7 fl (7.2-11.7); MONO # 1.1 K/uL (0.0-0.8); MONO % 10.4 % (0.0-10.0); NEUT # 7.3 K/uL (1.8-7.0); NEUT % 69.1 % (50.0-75.0); NRBC % 0.1 % (0.0-0.0); RBC 4.78 Mil/uL (4.40-5.90); RED CELL DISTRIBUTION WIDTH 14.8 % (11.5-14.5); WHITE BLOOD COUNT 10.5 K/uL (4.8-10.8)
[2018-04-07 13:30] LABS: BLOOD UREA NITROGEN 29 mg/dl (9-20); CALCIUM 8.5 mg/dL (8.4-10.2); GFR AFRICAN-AMERICAN > 60; GFR NON-AFRICAN AMERICAN 58
[2018-04-07 13:35] LABS: PROTHROMBIN TIME 11.6 Seconds (9.8-13.1)
--- NOTE | 2018-04-07 13:48 | RAD ---
Date of service: 04/07/2018 PROCEDURE: CHEST RADIOGRAPH, 1 VIEW HISTORY: Shortness of breath. COMPARISON: April 06, 2018. FINDINGS: LUNGS: Clear. PLEURA: No pneumothorax or pleural fluid seen. CARDIOVASCULAR: No radiographic findings to suggest acute or significant cardiovascular disease. OSSEOUS STRUCTURES: No significant abnormalities. VISUALIZED UPPER ABDOMEN: Normal. OTHER FINDINGS: None. IMPRESSION: No active disease. No acute/significant interval changes.
[2018-04-07] MEDS ORDERED: Iodixanol 320 MG/ML 100 ML BOTTLE IV ONE (13:49)
[2018-04-07] MEDS ORDERED: Sodium Chloride 0.9% 50 ML IV ONE (13:49)
--- NOTE | 2018-04-07 14:05 | CARD ---
APPROVED REPORT Date of service: 04/07/2018 EKG Measurement Heart [id number] [place] 134P53 [id number] <Conclusion> Sinus tachycardia Left anterior fascicular block Left ventricular hypertrophy with repolarization abnormality Abnormal ECG
--- NOTE | 2018-04-07 14:13 | CARD ---
APPROVED REPORT Date of service: 04/07/2018 EXAM: Two-dimensional and M-mode echocardiogram with Doppler and color Doppler. Other Information Quality : AverageRhythm : Tachycardia INDICATION Congestive Heart Failure 2D DIMENSIONS IVSd0.93 (0.7-1.1cm)LVDd4.03 (3.9-5.9cm) LVOT Diameter2.19 (1.8-2.4cm)PWd1.07 (0.7-1.1cm) IVSs1.22 (0.8-1.2cm)LVDs3.81 (2.5-4.0cm) FS (%) 5.4 %PWs1.07 (0.8-1.2cm) M-Mode DIMENSIONS Left Atrium (MM)3.97 (2.5-4.0cm)IVSd1.13 (0.7-1.1cm) Aortic Root3.44 (2.2-3.7cm)LVDd6.25 (4.0-5.6cm) Aortic Cusp Exc.1.81 (1.5-2.0cm)PWd0.81 (0.7-1.1cm) IVSs1.28 cmFS (%) 24 % LVDs4.78 (2.0-3.8cm)PWs1.16 cm Aortic Valve AoV Peak Sitwlcxq355.7cm/sAoV VTI23.2cmAO Peak GR.8mmHg LVOT Peak Gpfsnddw58.9cm/sLVOT VTI13.76cmAO Mean GR.5mmHg YAHIR (VMAX)1.29ks3IUP (VTI)1.18cm2 Mitral Valve E/A ratio0.0 TDI E/Lateral E'0.0E/Medial E'0.0 Pulmonary Valve PV Peak Itfjrmis578.1cm/s Tricuspid Valve TR Peak Bzchwkek472zb/sRAP JPSEWNGH62kfHaIF Peak Gr.26mmHg [id number] LEFT VENTRICLE The Left Ventricle is borderline dilated. There is borderline to mild concentric left ventricular hypertrophy. Left ventricle systolic function is mildly impaired. The Ejection Fraction is 40-45%. There is global hypokinesis of the left ventricle. Transmitral Doppler flow pattern is Grade II-pseudonormal filling dynamics. RIGHT VENTRICLE The right ventricle is normal size. The right ventricular systolic function is normal. ATRIA The left atrium is borderline dilated. The right atrium is borderline dilated. AORTIC VALVE The aortic valve is thickened but opens well. No aortic regurgitation is present. There is no aortic valvular stenosis. MITRAL VALVE The mitral valve is thickened but opens well. There is no mitral valve stenosis. Mitral regurgitation is trace to mild. TRICUSPID VALVE The tricuspid valve leaflets are thickened , but open well. There is mild tricuspid regurgitation. PULMONIC VALVE The pulmonic valve is not well visualized. There is no pulmonic valvular regurgitation. GREAT VESSELS The aortic root is normal in size. The IVC is normal in size and collapses >50% with inspiration. PERICARDIAL EFFUSION The pericardium appears normal. <Conclusion> Left ventricle systolic function is mildly impaired. The Ejection Fraction is 40-45%. There is global hypokinesis of the left ventricle. Transmitral Doppler flow pattern is Grade II-pseudonormal filling dynamics. Mitral regurgitation is trace to mild. There is mild tricuspid regurgitation.
[2018-04-07] MEDS ORDERED: Olopatadine 0.1% Opht SOLN OD PRN (14:54)
--- NOTE | 2018-04-07 15:15 | CT ---
Date of service: 04/07/2018 PROCEDURE: CT Chest with contrast (Pulmonary Angiogram) HISTORY: possible DVT/PE COMPARISON: None available. TECHNIQUE: Axial computed tomography images were obtained of the chest in the pulmonary arterial phase of enhancement. Coronal and sagittal reformatted images were created and reviewed. Intravenous contrast dose: 99 cc Visipaque 320. Mean Hounsfield unit values in the main pulmonary artery: 363.50 Radiation dose: Total exam DLP = 431.67 mGy-cm. This CT exam was performed using one or more of the following dose reduction techniques: Automated exposure control, adjustment of the mA and/or kV according to patient size, and/or use of iterative reconstruction technique. FINDINGS: PULMONARY ARTERIES: Unremarkable. No pulmonary embolism. AORTA: No acute findings. No thoracic aortic aneurysm. LUNGS: Dependent atelectasis at the lung bases. No suspicious pulmonary nodules or masses. PLEURAL SPACES: Trace pleural effusions. HEART: Unremarkable. No cardiomegaly. No significant pericardial effusion. LYMPH NODES: No lymphadenopathy. BONES, CHEST WALL: Unremarkable. No fracture or destructive lesion OTHER FINDINGS: Unremarkable. IMPRESSION: Unremarkable CT pulmonary angiogram. No pulmonary embolus. Additional benign and/or incidental findings described above.
[2018-04-07] MEDS: Levothyroxine 100 MCG TAB PO SCH (17:21)
[2018-04-08 06:03] LABS: HEMOGLOBIN 14.5 g/dL (12.0-18.0); MEAN CELL VOLUME 93.8 fl (80.0-94.0); MEAN CORPUSCULAR HEMOGLOBIN 31.7 pg (27.0-31.0); MEAN CORPUSCULAR HGB CONC 33.8 g/dL (33.0-37.0); RBC 4.59 Mil/uL (4.40-5.90); RED CELL DISTRIBUTION WIDTH 15.2 % (11.5-14.5); WHITE BLOOD COUNT 8.7 K/uL (4.8-10.8)
[2018-04-08 06:18] LABS: BLOOD UREA NITROGEN 29 mg/dl (9-20); CALCIUM 8.7 mg/dL (8.4-10.2); GFR AFRICAN-AMERICAN > 60; GFR NON-AFRICAN AMERICAN > 60
[2018-04-08] MEDS: Levothyroxine 100 MCG TAB PO SCH (06:27)
[2018-04-08] MEDS ORDERED: Potassium Chloride 20 mEq ER Tab PO ONE (08:25)
--- NOTE | 2018-04-08 08:38 | US ---
Date of service: 04/07/2018 PROCEDURE: Bilateral lower extremity venous duplex Doppler. HISTORY: CONCERN FOR DVT COMPARISON: None available. TECHNIQUE: Bilateral common femoral, superficial femoral, popliteal and posterior tibial veins were evaluated. Flow was assessed with color Doppler, compressibility, assessment of phasic flow and augmentation response. FINDINGS: COMMON FEMORAL VEIN: Right CFV: Unremarkable. Left CFV: Unremarkable. SUPERFICIAL FEMORAL VEIN: Right SFV: Unremarkable. Left SFV: Unremarkable. POPLITEAL VEIN: Right Popliteal: Unremarkable. Left Popliteal: Unremarkable. POSTERIOR TIBIAL VEIN: Right PTV: Unremarkable. Left PTV: Unremarkable. OTHER FINDINGS: None. IMPRESSION: No evidence of deep venous thrombosis in the right or left lower extremity. Preliminary interpretation of this examination was reported by [facility] at 7:49 p.m. on 04/07/2018. There is concurrence of this report with the preliminary interpretation.
[2018-04-08] MEDS: Metoprolol Succinate 25 mg XL Tab PO SCH (08:55)
[2018-04-08] MEDS: Pantoprazole 40 mg EC Tab PO SCH (08:55)
--- NOTE | 2018-04-08 10:18 | CP.PCM.PN ---
Subjective - Date & Time of Evaluation Date of Evaluation: 04/08/18 Time of Evaluation: 09:00 - Subjective Subjective: Breathes comfortably HR 74 BPM, reg BP 124/74 mm Hg JVP flat, few basal rales Echo shows borderline/mildly depressed LV syst function Labs show continued decline in azotemia (creatinin 1.0Mg) Pt on low dose of lasix Will mpnitor BMP Objective - Vital Signs/Intake and Output Vital Signs (last 24 hours): Temp Pulse Resp BP Pulse Ox 97.4 F L 98 H 20 125/70 96 04/08/18 08:25 04/08/18 08:55 04/08/18 08:25 04/08/18 08:55 04/08/18 08:25 - Medications Medications: Current Medications Acetaminophen (Tylenol 325mg Tab) 650 mg PO Q6 PRN PRN Reason: Pain, Mild (1-3) Last Admin: 04/07/18 01:07 Dose: 650 mg Alprazolam (Xanax) 0.5 mg PO DAILY [facility] Last Admin: 04/08/18 09:03 Dose: 0.5 mg Aspirin (Aspirin Chewable) 81 mg PO DAILY [facility] Last Admin: 04/08/18 08:55 Dose: 81 mg Atorvastatin Calcium (Lipitor) 10 mg PO DAILY [facility] Last Admin: 04/08/18 08:56 Dose: 10 mg Clopidogrel Bisulfate (Plavix) 75 mg PO DAILY [facility] Last Admin: 04/08/18 08:55 Dose: 75 mg Docusate Sodium (Colace) 100 mg PO BID PRN PRN Reason: Constipation Furosemide (Lasix) 20 mg PO DAILY [facility] Levothyroxine Sodium (Synthroid) 100 mcg PO DAILY@0630 [facility] Last Admin: 04/08/18 06:27 Dose: 100 mcg Losartan Potassium (Cozaar) 100 mg PO DAILY [facility] Metoprolol Succinate (Toprol Xl) 25 mg PO DAILY [facility] Last Admin: 04/08/18 08:55 Dose: 25 mg Olopatadine HCl (Patanol 0.1% Opht Soln) 1 drop OD BID PRN PRN Reason: Dry eyes Pantoprazole Sodium (Protonix Ec Tab) 40 mg PO DAILY [facility] Last Admin: 04/08/18 08:55 Dose: 40 mg Tamsulosin HCl (Flomax) 0.4 mg PO DAILY [facility] Last Admin: 04/08/18 08:54 Dose: 0.4 mg - Labs Labs: 04/08/18 04:20 04/08/18 04:20 PT 11.6 Seconds (9.8-13.1) 04/07/18 13:13 INR 1.0 (0.9-1.2) 04/07/18 13:13 APTT 30.8 Seconds (25.6-37.1) 04/06/18 14:12
--- NOTE | 2018-04-08 17:27 | CP.PCM.PN ---
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, lives alone Objective - Vital Signs/Intake and Output Vital Signs (last 24 hours): Temp Pulse Resp BP Pulse Ox 99 F 106 H 20 118/76 94 L 04/08/18 15:58 04/08/18 15:58 04/08/18 15:58 04/08/18 15:58 04/08/18 15:58 - Medications Medications: Current Medications Acetaminophen (Tylenol 325mg Tab) 650 mg PO Q6 PRN PRN Reason: Pain, Mild (1-3) Last Admin: 04/07/18 01:07 Dose: 650 mg Alprazolam (Xanax) 0.5 mg PO DAILY [facility] [place] Last Admin: 04/08/18 09:03 Dose: 0.5 mg Aspirin (Aspirin Chewable) 81 mg PO DAILY [facility] [place] Last Admin: 04/08/18 08:55 Dose: 81 mg Atorvastatin Calcium (Lipitor) 10 mg PO DAILY [facility] [place] Last Admin: 04/08/18 08:56 Dose: 10 mg Clopidogrel Bisulfate (Plavix) 75 mg PO DAILY [facility] [place] Last Admin: 04/08/18 08:55 Dose: 75 mg Docusate Sodium (Colace) 100 mg PO BID PRN PRN Reason: Constipation Furosemide (Lasix) 20 mg PO DAILY [facility] [place] Last Admin: 04/08/18 12:33 Dose: 20 mg Levothyroxine Sodium (Synthroid) 100 mcg PO DAILY@0630 [facility] [place] Last Admin: 04/08/18 06:27 Dose: 100 mcg Losartan Potassium (Cozaar) 100 mg PO DAILY [facility] [place] Metoprolol Succinate (Toprol Xl) 25 mg PO DAILY [facility] [place] Last Admin: 04/08/18 08:55 Dose: 25 mg Olopatadine HCl (Patanol 0.1% Opht Soln) 1 drop OD BID PRN PRN Reason: Dry eyes Pantoprazole Sodium (Protonix Ec Tab) 40 mg PO DAILY [facility] [place] Last Admin: 04/08/18 08:55 Dose: 40 mg Tamsulosin HCl (Flomax) 0.4 mg PO DAILY [facility] [place] Last Admin: 04/08/18 08:54 Dose: 0.4 mg - Labs Labs: 04/08/18 04:20 04/08/18 04:20 PT 11.6 Seconds (9.8-13.1) 04/07/18 13:13 INR 1.0 (0.9-1.2) 04/07/18 13:13 APTT 30.8 Seconds (25.6-37.1) 04/06/18 14:12 - Constitutional Appears: No Acute Distress, Chronically Ill - Head Exam Head Exam: NORMAL INSPECTION, NORMOCEPHALIC - Eye Exam Eye Exam: EOMI, Normal appearance Pupil Exam: NORMAL ACCOMODATION - ENT Exam ENT Exam: Mucous Membranes Moist, Normal External Ear Exam - Neck Exam Neck Exam: Full ROM. absent: Meningismus - Respiratory Exam Respiratory Exam: NORMAL BREATHING PATTERN. absent: Respiratory Distress - Cardiovascular Exam Cardiovascular Exam: REGULAR RHYTHM, +S1, +S2 - GI/Abdominal Exam GI & Abdominal Exam: Soft, Normal Bowel Sounds. absent: Tenderness - Extremities Exam Extremities Exam: Normal Capillary Refill, Pedal Edema (trace). absent: Calf Tenderness - Back Exam Back Exam: Full ROM. absent: CVA tenderness (L), CVA tenderness (R) - Neurological Exam Neurological Exam: Oriented x3 - Psychiatric Exam Psychiatric exam: Normal Affect, Normal Mood - Skin Skin Exam: Dry, Normal Color, Warm Assessment and Plan - Assessment and Plan (Free Text) Assessment: 77 yo male with history of HTN and previous CVA fell from his bed yesterday around 2pm and was unable to get up until homemaker found him on the floor in the morning. Patient denied LOC or getting injured from the fall. He has been home bound since suffering from stroke leaving him with slurred speech and right sided weakness. There was no chest pain, SOB or dizziness. 04/07: - RADIOLOGICAL TECHNOLOGIST called for acute pulmonary edema due to fluid overload and orthopnea - He became mildly hypoxic, tachypneic, tachycardic, maintaining pressures. - He had received appx 4 liters of fluid over 24 hours. - ECHO showed combined systolic and diastolic dysfunction, patient responded well to lasix and is now comfortable. - Given hypoxia, tachycardia, rhabdo due to fall and extended down time, increasing risk for DVT, dimer was sent and was positive. CTA was negative for PE. - Patient is now saturating 98 on room air, no longer tachycardic. Patient was febrile 101.8, possibly due to stress reaction of acute pulm edema, as pt did not have any L shift/bands - procalcitonin is pending. - UA was neg on admission, CXR/CT no obvious infiltrates, all cultures negative so far - Lactic acid secondary to rhabdo. 1. Rhabdomyolysis IVF hydration done - pt went to Pulm Edema repeat CPK tomorrow 2. Elevated Troponin Troponin trending down EKG: sinus tach with left ant fascicular block no previous EKG on board to compare with cont ASA, Toprol and LOsartan cardiology consult with Dr Cortés 3. Leukocytosis probably reactive and also from volume depletion 4. HTN BP stable on Toprol and LOsartan, Lasix 5. 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 Acute KIdney Injury sec to Rhabdo improved with IVF hydration 7. Hx of CVA cont ASA DVT prophylaxis venodyne boots while in bed Lovenox
[2018-04-09] MEDS: Levothyroxine 100 MCG TAB PO SCH (05:53)
[2018-04-09 06:26] LABS: ALB/GLOB RATIO 1.1 (1.0-2.1); ALBUMIN 3.4 g/dL (3.5-5.0); ALT/SGPT 185 U/L (21-72); AST/SGOT 351 U/L (17-59); BLOOD UREA NITROGEN 34 mg/dl (9-20); CALCIUM 8.9 mg/dL (8.4-10.2); GFR AFRICAN-AMERICAN > 60; GFR NON-AFRICAN AMERICAN > 60
[2018-04-09] MEDS: Metoprolol Succinate 25 mg XL Tab PO SCH (08:24)
[2018-04-09] MEDS: Pantoprazole 40 mg EC Tab PO SCH (08:26)
[2018-04-09] MEDS: Enoxaparin 40 mg Syringe SC SCH (08:26)
[2018-04-09] MEDS ORDERED: Potassium Chloride 20 mEq ER Tab PO ONE (08:46)
[2018-04-09 09:20] LABS: FREE KAPPA SERUM 24.3 mg/L (3.3-19.4)
--- NOTE | 2018-04-09 14:24 | CP.PCM.DIS ---
Provider - Provider Date of Admission: 04/06/18 16:55 Attending physician: Jesse Vilchis MD Primary care physician: Dr Armando Devine Consults: Cardio: DR Kulwant Fontana Time Spent in preparation of Discharge (in minutes): 35 Diagnosis - Discharge Diagnosis (1) Rhabdomyolysis Status: Acute (2) Elevated troponin Status: Acute (3) Acute kidney injury Status: Acute (4) Acute on chronic combined systolic (congestive) and diastolic (congestive) heart failure Status: Acute (5) History of CVA (cerebrovascular accident) without residual deficits Status: Chronic Hospital Course - Lab Results Lab Results: Micro Results 04/07/18 13:13 Blood Blood Culture - Preliminary NO GROWTH AFTER 48 HOURS 04/08/18 06:00 Urine,Whitney Urine Culture - Preliminary Gram Negative Yusuf Gram Positive Cocci 04/06/18 13:55 Blood-Venous Blood Culture - Preliminary NO GROWTH AFTER 48 HOURS 04/06/18 13:55 Blood-Venous Blood Culture - Preliminary NO GROWTH AFTER 48 HOURS 04/06/18 16:50 Urine,Clean Catch Urine Culture - Final No Growth (<1,000 CFU/ML) Most Recent Lab Values WBC 8.7 K/uL (4.8-10.8) 04/08/18 04:20 RBC 4.59 Mil/uL (4.40-5.90) 04/08/18 04:20 Hgb 14.5 g/dL (12.0-18.0) 04/08/18 04:20 Hct 43.1 % (35.0-51.0) 04/08/18 04:20 MCV 93.8 fl (80.0-94.0) 04/08/18 04:20 MCH 31.7 pg (27.0-31.0) H 04/08/18 04:20 MCHC 33.8 g/dL (33.0-37.0) 04/08/18 04:20 RDW 15.2 % (11.5-14.5) H 04/08/18 04:20 Plt Count 208 K/uL (130-400) 04/08/18 04:20 MPV 8.7 fl (7.2-11.7) 04/07/18 13:13 Neut % (Auto) 69.1 % (50.0-75.0) 04/07/18 13:13 Lymph % (Auto) 20.2 % (20.0-40.0) 04/07/18 13:13 [place] % (Auto) 10.4 % (0.0-10.0) H 04/07/18 13:13 Eos % (Auto) 0.0 % (0.0-4.0) 04/07/18 13:13 Baso % (Auto) 0.3 % (0.0-2.0) 04/07/18 13:13 Neut # (Auto) 7.3 K/uL (1.8-7.0) H 04/07/18 13:13 Lymph # (Auto) 2.1 K/uL (1.0-4.3) 04/07/18 13:13 [place] # (Auto) 1.1 K/uL (0.0-0.8) H 04/07/18 13:13 Eos # (Auto) 0.0 K/uL (0.0-0.7) 04/07/18 13:13 Baso # (Auto) 0.0 K/uL (0.0-0.2) 04/07/18 13:13 PT 11.6 Seconds (9.8-13.1) 04/07/18 13:13 INR 1.0 (0.9-1.2) 04/07/18 13:13 APTT 30.8 Seconds (25.6-37.1) 04/06/18 14:12 D-Dimer, Quantitative 1702 ng/mlDDU (0-230) H 04/07/18 13:13 pCO2 29 mm/Hg (35-45) L 04/07/18 13:03 pO2 94 mm/Hg (80-100) 04/07/18 13:03 HCO3 21.6 mmol/L (21-28) 04/07/18 13:03 ABG pH 7.42 (7.35-7.45) 04/07/18 13:03 ABG Total CO2 19.7 mmol/L (22-28) L 04/07/18 13:03 ABG O2 Saturation 98.7 % (95-98) H 04/07/18 13:03 ABG Base Excess -4.2 mmol/L (-2.0-3.0) L 04/07/18 13:03 Raman Test Yes 04/07/18 13:03 ABG Potassium 3.7 mmol/L (3.6-5.2) 04/07/18 13:03 VBG pH 7.11 (7.32-7.43) L* 04/06/18 14:16 VBG pCO2 48 mmHg (40-60) 04/06/18 14:16 VBG HCO3 13.1 mmol/L 04/06/18 14:16 VBG Total CO2 16.7 mmol/L (22-28) L 04/06/18 14:16 VBG O2 Sat (Calc) 78.8 % (40-65) H 04/06/18 14:16 VBG Base Excess -14.1 mmol/L (0.0-2.0) L 04/06/18 14:16 A-a O2 Difference 119.0 mm/Hg 04/07/18 13:03 Sodium 135.0 mmol/L (132-148) 04/07/18 13:03 Chloride 106.0 mmol/L (98-107) 04/07/18 13:03 Glucose 124 mg/dL (75-110) H 04/07/18 13:03 Lactate 3.1 mmol/L (0.7-2.1) H 04/07/18 13:03 FiO2 35.0 % 04/07/18 13:03 Blood Gas Comments 3l/m nc,rr 04/07/18 13:03 Crit Value Called To dorian Reid 04/06/18 14:16 Crit Value Called By 22 04/06/18 14:16 Crit Value Read Back N 04/07/18 13:03 Blood Gas Notified Time 1425 04/06/18 14:16 Sodium 137 mmol/l (132-148) 04/09/18 04:20 Potassium 3.5 MMOL/L (3.6-5.0) L 04/09/18 04:20 Chloride 103 mmol/L (98-107) 04/09/18 04:20 Carbon Dioxide 24 mmol/L (22-30) 04/09/18 04:20 Anion Gap 14 (10-20) 04/09/18 04:20 BUN 34 mg/dl (9-20) H 04/09/18 04:20 Creatinine 1.1 mg/dl (0.8-1.5) 04/09/18 04:20 Est GFR ( Amer) > 60 04/09/18 04:20 Est GFR (Non-Af Amer) > 60 04/09/18 04:20 POC Glucose (mg/dL) 117 mg/dL (65-110) H 04/07/18 12:49 Random Glucose 108 mg/dL (75-110) 04/09/18 04:20 Calcium 8.9 mg/dL (8.4-10.2) 04/09/18 04:20 Total Bilirubin 0.8 mg/dl (0.2-1.3) 04/09/18 04:20 AST 351 U/L (17-59) H D 04/09/18 04:20 ALT 185 U/L (21-72) H D 04/09/18 04:20 Alkaline Phosphatase 100 U/L (38-126) 04/09/18 04:20 Total Creatine Kinase 5918 U/L (55-170) H 04/09/18 04:20 Troponin I 0.2710 ng/mL (0.00-0.120) H* 04/07/18 13:13 Total Protein 6.4 G/DL (6.3-8.2) 04/09/18 04:20 Albumin 3.4 g/dL (3.5-5.0) L D 04/09/18 04:20 Globulin 3.0 gm/dL (2.2-3.9) 04/09/18 04:20 Albumin/Globulin Ratio 1.1 (1.0-2.1) 04/09/18 04:20 Triglycerides 166 mg/DL (0-149) H 04/07/18 04:20 Cholesterol 154 mg/dL (0-199) 04/07/18 04:20 LDL Cholesterol Direct 81 mg/dL (0-129) 04/07/18 04:20 HDL Cholesterol 26 MG/DL (30-70) L 04/07/18 04:20 Procalcitonin 2.61 NG/ML (0.19-0.49) H 04/07/18 15:37 Free T4 1.05 ng/dL (0.78-2.19) 04/08/18 04:20 TSH 3rd Generation 0.45 mIU/ML (0.46-4.68) L 04/07/18 04:20 Arterial Blood Potassium 3.7 mmol/L (3.6-5.2) 04/07/18 13:03 Urine Color Noemi (YELLOW) 04/06/18 16:50 Urine Clarity Cloudy (Clear) 04/06/18 16:50 Urine pH 5.0 (5.0-8.0) 04/06/18 16:50 Ur Specific [place] 1.021 (1.003-1.030) 04/06/18 16:50 Urine Protein 100 mg/dL (NEGATIVE) 04/06/18 16:50 Urine Glucose (UA) Neg mg/dL (Normal) 04/06/18 16:50 Urine Ketones 20 mg/dL (NEGATIVE) 04/06/18 16:50 Urine Blood Large (NEGATIVE) 04/06/18 16:50 Urine Nitrate Negative (NEGATIVE) 04/06/18 16:50 Urine Bilirubin Negative (NEGATIVE) 04/06/18 16:50 Urine Urobilinogen 0.2-1.0 mg/dL (0.2-1.0) 04/06/18 16:50 Ur Leukocyte Esterase Neg Leonides/uL (Negative) 04/06/18 16:50 Urine RBC (Auto) 3 /hpf (0-3) 04/06/18 16:50 Ur Squamous Epith Cells < 1 /hpf (0-5) 04/06/18 16:50 Amorphous Sediment Rare /ul (<OCC) H 04/06/18 16:50 Urine Bacteria Rare (<OCC) 04/06/18 16:50 Granular Casts (Auto) 3 /lpf (0-1) 04/06/18 16:50 Urine Yeast (Budding) Few /hpf (NEGATIVE) H 04/06/18 16:50 Free [place] Light Chains 24.3 mg/L (3.3-19.4) H 04/08/18 04:20 Free Lambda Light Chain 16.8 mg/L (5.7-26.3) 04/08/18 04:20 Free [place]/Lambda Ratio 1.45 (0.26-1.65) 04/08/18 04:20 - Hospital Course Hospital Course: 77 yo male with history of HTN and previous CVA fell from his bed at around 2pm and was unable to get up until homemaker found him on the floor in the morning. Patient denied LOC or getting injured from the fall. He has been home bound since suffering from stroke leaving him with slurred speech and some right sided weakness. There was no chest pain, SOB or dizziness. 04/07: - SOLDERING MACHINE TENDER called for acute pulmonary edema due to fluid overload and orthopnea - He became mildly hypoxic, tachypneic, tachycardic, maintaining pressures. - He had received appx 4 liters of fluid over 24 hours. - ECHO showed combined systolic and diastolic dysfunction, patient responded well to lasix and is now comfortable. - Given hypoxia, tachycardia, rhabdo due to fall and extended down time, increasing risk for DVT, dimer was sent and was positive. CTA was negative for PE. - UA was neg on admission, CXR/CT no obvious infiltrates, all cultures negative so far - Lactic acid secondary to rhabdo. 1. Rhabdomyolysis IVF hydration CPK trended done Oral fluid intake renal function normal 2. Elevated Troponin Troponin trended down EKG: sinus tach with left ant fascicular block no previous EKG on board to compare with cont ASA, Toprol and LOsartan cardiology consulted: Dr Cortés 3. Leukocytosis probably reactive and also from volume depletion 4. HTN BP stable on Toprol and LOsartan, Lasix 5. Acute Pulmonary edema/ acute on chronic systolic and diastolic CHF EF 40%, global hypokinesia on ECHO cont Lasix, LOsartan , Toprol 6. Acute KIdney Injury sec to Rhabdo improved with IVF hydration 7. Hx of CVA cont ASA, statin 8. Chronic Dementia likely vascular since hx of CVA , had some mild dementia DVT prophylaxis venodyne boots while in bed Lovenox Discharge Exam - Head Exam Head Exam: NORMAL INSPECTION, NORMOCEPHALIC - Eye Exam Eye Exam: EOMI, Normal appearance Pupil Exam: NORMAL ACCOMODATION - ENT Exam ENT Exam: Mucous Membranes Moist, Normal External Ear Exam - Neck Exam Neck exam: Full Rom - Respiratory Exam Respiratory Exam: Rales (min rales bases), NORMAL BREATHING PATTERN. absent: Respiratory Distress - Cardiovascular Exam Cardiovascular Exam: REGULAR RHYTHM, +S1, +S2 - GI/Abdominal Exam GI & Abdominal Exam: Normal Bowel Sounds, Soft. absent: Tenderness - Extremities Exam Extremities exam: normal capillary refill, pedal pulses present Additional comments: no calf tenderness - Back Exam Back exam: FULL ROM. absent: CVA tenderness (L), CVA tenderness (R) - Neurological Exam Neurological exam: Alert Additional comments: oriented to person and place - Psychiatric Exam Psychiatric exam: Normal Affect, Normal Mood - Skin Skin Exam: Dry, Normal Color, Warm Discharge Plan - Discharge Medications Prescriptions: ALPRAZolam [Xanax] 0.25 mg PO BID #1 tab Metoprolol Succinate XL [Toprol XL] 50 mg PO DAILY #1 tab - Follow Up Plan Condition: STABLE Disposition: TRANSF TO SNF Instructions: Dehydration, Adult (DC), Rhabdomyolysis (DC) Additional Instructions: ff up with PMD in 1-2 wks Referrals: Armando Devine MD [Medical Doctor] - Clinical Quality Measures - CQM - Heart Failure Ejection Fraction: 40 % or Greater Left Ventricular Function to be assessed after discharge: Yes AYDEN Inhibitor Prescribed: No Contraindication/Reason for not providing: pt on ARB Beta-Luis Prescribed: Metoprolol Succinate Angiotensin II Receptor Luis Prescribed: Yes AnticoagulationTherapy for Atrial Fibrillation/Atrialflutter: No Contraindication/Reason for not providing: not indicated Aldosterone Antagonist Prescribed: No Contraindication/Reason for not providing: BP low normal Hydralazine Nitrate Prescribed: No Contraindication/Reason for not providing: BP low normal on BB and ARB Implantable Cardioverter Defibrillator Therapy: No Contraindication/Reason for not providing: not indicated Cardiac Resynchronization Therapy Prescribed: No Contraindication/Reason for not providing: not indicated [facility] Follow Up Date (must be within 7 days from discharge): 04/10/18 Follow Up Time: 09:00 - Date & Time of Discharge Summary Date of Discharge Summary: 04/09/18 Time of Discharge Summary: 15:20
--- NOTE | 2018-04-09 14:33 | CP.PCM.DIS ---
Provider - Provider Date of Admission: 04/06/18 16:55 Attending physician: Jesse Vilchis MD Hospital Course - Lab Results Lab Results: Micro Results 04/07/18 13:13 Blood Blood Culture - Preliminary NO GROWTH AFTER 48 HOURS 04/08/18 06:00 Urine,Whitney Urine Culture - Preliminary Gram Negative Yusuf Gram Positive Cocci 04/06/18 13:55 Blood-Venous Blood Culture - Preliminary NO GROWTH AFTER 48 HOURS 04/06/18 13:55 Blood-Venous Blood Culture - Preliminary NO GROWTH AFTER 48 HOURS 04/06/18 16:50 Urine,Clean Catch Urine Culture - Final No Growth (<1,000 CFU/ML) Most Recent Lab Values WBC 8.7 K/uL (4.8-10.8) 04/08/18 04:20 RBC 4.59 Mil/uL (4.40-5.90) 04/08/18 04:20 Hgb 14.5 g/dL (12.0-18.0) 04/08/18 04:20 Hct 43.1 % (35.0-51.0) 04/08/18 04:20 MCV 93.8 fl (80.0-94.0) 04/08/18 04:20 MCH 31.7 pg (27.0-31.0) H 04/08/18 04:20 MCHC 33.8 g/dL (33.0-37.0) 04/08/18 04:20 RDW 15.2 % (11.5-14.5) H 04/08/18 04:20 Plt Count 208 K/uL (130-400) 04/08/18 04:20 MPV 8.7 fl (7.2-11.7) 04/07/18 13:13 Neut % (Auto) 69.1 % (50.0-75.0) 04/07/18 13:13 Lymph % (Auto) 20.2 % (20.0-40.0) 04/07/18 13:13 [place] % (Auto) 10.4 % (0.0-10.0) H 04/07/18 13:13 Eos % (Auto) 0.0 % (0.0-4.0) 04/07/18 13:13 Baso % (Auto) 0.3 % (0.0-2.0) 04/07/18 13:13 Neut # (Auto) 7.3 K/uL (1.8-7.0) H 04/07/18 13:13 Lymph # (Auto) 2.1 K/uL (1.0-4.3) 04/07/18 13:13 [place] # (Auto) 1.1 K/uL (0.0-0.8) H 04/07/18 13:13 Eos # (Auto) 0.0 K/uL (0.0-0.7) 04/07/18 13:13 Baso # (Auto) 0.0 K/uL (0.0-0.2) 04/07/18 13:13 PT 11.6 Seconds (9.8-13.1) 04/07/18 13:13 INR 1.0 (0.9-1.2) 04/07/18 13:13 APTT 30.8 Seconds (25.6-37.1) 04/06/18 14:12 D-Dimer, Quantitative 1702 ng/mlDDU (0-230) H 04/07/18 13:13 pCO2 29 mm/Hg (35-45) L 04/07/18 13:03 pO2 94 mm/Hg (80-100) 04/07/18 13:03 HCO3 21.6 mmol/L (21-28) 04/07/18 13:03 ABG pH 7.42 (7.35-7.45) 04/07/18 13:03 ABG Total CO2 19.7 mmol/L (22-28) L 04/07/18 13:03 ABG O2 Saturation 98.7 % (95-98) H 04/07/18 13:03 ABG Base Excess -4.2 mmol/L (-2.0-3.0) L 04/07/18 13:03 Raman Test Yes 04/07/18 13:03 ABG Potassium 3.7 mmol/L (3.6-5.2) 04/07/18 13:03 VBG pH 7.11 (7.32-7.43) L* 04/06/18 14:16 VBG pCO2 48 mmHg (40-60) 04/06/18 14:16 VBG HCO3 13.1 mmol/L 04/06/18 14:16 VBG Total CO2 16.7 mmol/L (22-28) L 04/06/18 14:16 VBG O2 Sat (Calc) 78.8 % (40-65) H 04/06/18 14:16 VBG Base Excess -14.1 mmol/L (0.0-2.0) L 04/06/18 14:16 A-a O2 Difference 119.0 mm/Hg 04/07/18 13:03 Sodium 135.0 mmol/L (132-148) 04/07/18 13:03 Chloride 106.0 mmol/L (98-107) 04/07/18 13:03 Glucose 124 mg/dL (75-110) H 04/07/18 13:03 Lactate 3.1 mmol/L (0.7-2.1) H 04/07/18 13:03 FiO2 35.0 % 04/07/18 13:03 Blood Gas Comments 3l/m nc,rr 04/07/18 13:03 Crit Value Called To dorian Reid 04/06/18 14:16 Crit Value Called By 22 04/06/18 14:16 Crit Value Read Back N 04/07/18 13:03 Blood Gas Notified Time 1425 04/06/18 14:16 Sodium 137 mmol/l (132-148) 04/09/18 04:20 Potassium 3.5 MMOL/L (3.6-5.0) L 04/09/18 04:20 Chloride 103 mmol/L (98-107) 04/09/18 04:20 Carbon Dioxide 24 mmol/L (22-30) 04/09/18 04:20 Anion Gap 14 (10-20) 04/09/18 04:20 BUN 34 mg/dl (9-20) H 04/09/18 04:20 Creatinine 1.1 mg/dl (0.8-1.5) 04/09/18 04:20 Est GFR ( Amer) > 60 04/09/18 04:20 Est GFR (Non-Af Amer) > 60 04/09/18 04:20 POC Glucose (mg/dL) 117 mg/dL (65-110) H 04/07/18 12:49 Random Glucose 108 mg/dL (75-110) 04/09/18 04:20 Calcium 8.9 mg/dL (8.4-10.2) 04/09/18 04:20 Total Bilirubin 0.8 mg/dl (0.2-1.3) 04/09/18 04:20 AST 351 U/L (17-59) H D 04/09/18 04:20 ALT 185 U/L (21-72) H D 04/09/18 04:20 Alkaline Phosphatase 100 U/L (38-126) 04/09/18 04:20 Total Creatine Kinase 5918 U/L (55-170) H 04/09/18 04:20 Troponin I 0.2710 ng/mL (0.00-0.120) H* 04/07/18 13:13 Total Protein 6.4 G/DL (6.3-8.2) 04/09/18 04:20 Albumin 3.4 g/dL (3.5-5.0) L D 04/09/18 04:20 Globulin 3.0 gm/dL (2.2-3.9) 04/09/18 04:20 Albumin/Globulin Ratio 1.1 (1.0-2.1) 04/09/18 04:20 Triglycerides 166 mg/DL (0-149) H 04/07/18 04:20 Cholesterol 154 mg/dL (0-199) 04/07/18 04:20 LDL Cholesterol Direct 81 mg/dL (0-129) 04/07/18 04:20 HDL Cholesterol 26 MG/DL (30-70) L 04/07/18 04:20 Procalcitonin 2.61 NG/ML (0.19-0.49) H 04/07/18 15:37 Free T4 1.05 ng/dL (0.78-2.19) 04/08/18 04:20 TSH 3rd Generation 0.45 mIU/ML (0.46-4.68) L 04/07/18 04:20 Arterial Blood Potassium 3.7 mmol/L (3.6-5.2) 04/07/18 13:03 Urine Color Noemi (YELLOW) 04/06/18 16:50 Urine Clarity Cloudy (Clear) 04/06/18 16:50 Urine pH 5.0 (5.0-8.0) 04/06/18 16:50 Ur Specific [place] 1.021 (1.003-1.030) 04/06/18 16:50 Urine Protein 100 mg/dL (NEGATIVE) 04/06/18 16:50 Urine Glucose (UA) Neg mg/dL (Normal) 04/06/18 16:50 Urine Ketones 20 mg/dL (NEGATIVE) 04/06/18 16:50 Urine Blood Large (NEGATIVE) 04/06/18 16:50 Urine Nitrate Negative (NEGATIVE) 04/06/18 16:50 Urine Bilirubin Negative (NEGATIVE) 04/06/18 16:50 Urine Urobilinogen 0.2-1.0 mg/dL (0.2-1.0) 04/06/18 16:50 Ur Leukocyte Esterase Neg Leonides/uL (Negative) 04/06/18 16:50 Urine RBC (Auto) 3 /hpf (0-3) 04/06/18 16:50 Ur Squamous Epith Cells < 1 /hpf (0-5) 04/06/18 16:50 Amorphous Sediment Rare /ul (<OCC) H 04/06/18 16:50 Urine Bacteria Rare (<OCC) 04/06/18 16:50 Granular Casts (Auto) 3 /lpf (0-1) 04/06/18 16:50 Urine Yeast (Budding) Few /hpf (NEGATIVE) H 04/06/18 16:50 Free [place] Light Chains 24.3 mg/L (3.3-19.4) H 04/08/18 04:20 Free [place]ambda Light Chain 16.8 mg/L (5.7-26.3) 04/08/18 04:20 Free [place]/Lambda Ratio 1.45 (0.26-1.65) 04/08/18 04:20 Discharge Exam - Head Exam Head Exam: NORMAL INSPECTION, NORMOCEPHALIC Discharge Plan - Discharge Medications Prescriptions: ALPRAZolam [Xanax] 0.25 mg PO BID #1 tab Metoprolol Succinate XL [Toprol XL] 50 mg PO DAILY #1 tab - Follow Up Plan Condition: STABLE Disposition: TRANSF TO SNF Additional Instructions: ff up with PMD in 1-2 wks Referrals: Armando Devine MD [Medical Doctor] -
[2018-04-09 17:05] LABS: SQUAMOUS EPITHIAL < 1 /hpf (0-5); URINE BACTERIA MANY (<OCC); URINE BILIRUBIN NEGATIVE (NEGATIVE); URINE BLOOD MODERATE (NEGATIVE); URINE CLARITY SLIGHTY-CLOUDY (Clear); URINE COLOR YELLOW (YELLOW); URINE GLUCOSE (UA) NEG (Normal); URINE LEUKOCYTE ESTERASE MOD Leu/uL (Negative); URINE PROTEIN NEGATIVE (NEGATIVE)
[2018-04-10 06:04] LABS: ALB/GLOB RATIO 1.1 (1.0-2.1); ALBUMIN 3.6 g/dL (3.5-5.0); ALT/SGPT 196 U/L (21-72); AST/SGOT 298 U/L (17-59); BLOOD UREA NITROGEN 24 mg/dl (9-20); CALCIUM 9.1 mg/dL (8.4-10.2); GFR AFRICAN-AMERICAN > 60; GFR NON-AFRICAN AMERICAN > 60
[2018-04-10] MEDS: Levothyroxine 100 MCG TAB PO SCH (06:05)
[2018-04-10] MEDS: Enoxaparin 40 mg Syringe SC SCH (10:18)
[2018-04-10] MEDS: Pantoprazole 40 mg EC Tab PO SCH (10:19)
[2018-04-10] MEDS: Metoprolol Succinate 50 mg XL Tab PO SCH (10:25)
--- NOTE | 2018-04-10 11:21 | CP.PCM.PN ---
Subjective - Date & Time of Evaluation Date of Evaluation: 04/10/18 Time of Evaluation: 10:45 - Subjective Subjective: Pt is febrile 101 denies cough no SOB no CP no abd pain no diarrhea Urine c/s came back greater 100,000 Klebsiella and Enterococcus - await sensitivity Objective - Vital Signs/Intake and Output Vital Signs (last 24 hours): Temp Pulse Resp BP Pulse Ox 101.1 F H 113 H 18 164/60 H 94 L 04/10/18 08:27 04/10/18 08:27 04/10/18 08:27 04/10/18 10:17 04/10/18 08:27 - Medications Medications: Current Medications Acetaminophen (Tylenol 325mg Tab) 650 mg PO Q6 PRN PRN Reason: Pain, Mild (1-3) Last Admin: 04/07/18 01:07 Dose: 650 mg Alprazolam (Xanax) 0.5 mg PO DAILY [facility] Last Admin: 04/09/18 08:29 Dose: 0.5 mg Aspirin (Aspirin Chewable) 81 mg PO DAILY [facility] Last Admin: 04/10/18 10:15 Dose: 81 mg Atorvastatin Calcium (Lipitor) 10 mg PO DAILY [facility] Last Admin: 04/10/18 10:18 Dose: 10 mg Clopidogrel Bisulfate (Plavix) 75 mg PO DAILY [facility] Last Admin: 04/10/18 10:18 Dose: 75 mg Docusate Sodium (Colace) 100 mg PO BID PRN PRN Reason: Constipation Last Admin: 04/10/18 10:16 Dose: 100 mg Enoxaparin Sodium (Lovenox) 40 mg SC DAILY IAN PRN Reason: Protocol Last Admin: 04/10/18 10:18 Dose: 40 mg Finasteride (Proscar) 5 mg PO DAILY [facility] Last Admin: 04/10/18 10:18 Dose: 5 mg Furosemide (Lasix) 20 mg PO DAILY [facility] Last Admin: 04/10/18 10:17 Dose: 20 mg Ceftriaxone Sodium 1 gm/ (Sodium Chloride) 100 mls @ 100 mls/hr IVPB DAILY IAN PRN Reason: Protocol Last Admin: 04/10/18 10:22 Dose: 100 mls/hr Vancomycin HCl 1 gm/ Sodium (Chloride) 250 mls @ 166.667 mls/hr IVPB STAT STA PRN Reason: Protocol Stop: 04/10/18 12:01 Levothyroxine Sodium (Synthroid) 100 mcg PO DAILY@0630 [facility] Last Admin: 04/10/18 06:05 Dose: Not Given Losartan Potassium (Cozaar) 100 mg PO DAILY [facility] Last Admin: 04/10/18 10:16 Dose: 100 mg Metoprolol Succinate (Toprol Xl) 50 mg PO DAILY [facility] Olopatadine HCl (Patanol 0.1% Opht Soln) 1 drop OD BID PRN PRN Reason: Dry eyes Pantoprazole Sodium (Protonix Ec Tab) 40 mg PO DAILY [facility] Last Admin: 04/10/18 10:19 Dose: 40 mg Tamsulosin HCl (Flomax) 0.4 mg PO DAILY [facility] Last Admin: 04/10/18 10:17 Dose: 0.4 mg - Labs Labs: 04/08/18 04:20 04/10/18 05:00 PT 11.6 Seconds (9.8-13.1) 04/07/18 13:13 INR 1.0 (0.9-1.2) 04/07/18 13:13 APTT 30.8 Seconds (25.6-37.1) 04/06/18 14:12 - Constitutional Appears: No Acute Distress, Chronically Ill - Head Exam Head Exam: NORMAL INSPECTION, NORMOCEPHALIC - Eye Exam Eye Exam: EOMI, Normal appearance Pupil Exam: NORMAL ACCOMODATION - ENT Exam ENT Exam: Mucous Membranes Moist, Normal External Ear Exam - Neck Exam Neck Exam: Full ROM. absent: Meningismus - Respiratory Exam Respiratory Exam: NORMAL BREATHING PATTERN. absent: Respiratory Distress - Cardiovascular Exam Cardiovascular Exam: REGULAR RHYTHM, +S1, +S2 - GI/Abdominal Exam GI & Abdominal Exam: Soft, Normal Bowel Sounds. absent: Tenderness - Extremities Exam Extremities Exam: Normal Capillary Refill, Pedal Edema (trace). absent: Calf Tenderness - Back Exam Back Exam: Full ROM. absent: CVA tenderness (L), CVA tenderness (R) - Neurological Exam Neurological Exam: Oriented to person and place - Psychiatric Exam Psychiatric exam: Normal Affect, Normal Mood - Skin Skin Exam: Dry, Normal Color, Warm Assessment and Plan (1) Rhabdomyolysis Status: Acute (2) Elevated troponin Status: Acute (3) Acute kidney injury Status: Acute (4) Acute on chronic combined systolic (congestive) and diastolic (congestive) heart failure Status: Acute (5) History of CVA (cerebrovascular accident) without residual deficits Status: Chronic - Assessment and Plan (Free Text) Assessment: 77 yo male with history of HTN and previous CVA fell from his bed at around 2pm and was unable to get up until homemaker found him on the floor in the morning. Patient denied LOC or getting injured from the fall. He has been home bound since suffering from stroke leaving him with slurred speech and some right sided weakness. There was no chest pain, SOB or dizziness. 04/07: - SCREENER AND BLENDER called for acute pulmonary edema due to fluid overload and orthopnea - He became mildly hypoxic, tachypneic, tachycardic, maintaining pressures. - He had received appx 4 liters of fluid over 24 hours. - ECHO showed combined systolic and diastolic dysfunction, patient responded well to lasix and is now comfortable. - Given hypoxia, tachycardia, rhabdo due to fall and extended down time, increasing risk for DVT, dimer was sent and was positive. CTA was negative for PE. - UA was neg on admission, CXR/CT no obvious infiltrates, all cultures negative so far - Lactic acid secondary to rhabdo. 04/09: plan to d/c pt to [facility] however pt suddenly spiked fever - Urine c/s came back + for Klebsiella and Enterococcus 1. Rhabdomyolysis IVF hydration CPK trending down Oral fluid intake renal function normal 2. Elevated Troponin Troponin trended down EKG: sinus tach with left ant fascicular block no previous EKG on board to compare with cont ASA, Toprol and LOsartan cardiology consulted: Dr Cortés 3. UTI ( Klebsiella and Enterococcus) Pt started on IV Ceftriaxone and a dose of IV Vanco given once afebrile , will d/c pt to [facility] on antibiotics for 1 more week 4. HTN BP stable on Toprol and LOsartan, Lasix 5. Acute Pulmonary edema/ acute on chronic systolic and diastolic CHF EF 40%, global hypokinesia on ECHO cont Lasix, LOsartan , Toprol 6. Acute KIdney Injury sec to Rhabdo improved with IVF hydration 7. Hx of CVA cont ASA, statin 8. Chronic Dementia likely vascular since hx of CVA , had some mild dementia DVT prophylaxis venodyne boots while in bed Lovenox
[2018-04-10] MEDS: Ciprofloxacin 400mg/200ml D5W 400 MG/200 ML BAG IVPB SCH (21:45)
[2018-04-11 05:11] VITALS: RESP 18
[2018-04-11 06:12] LABS: ALB/GLOB RATIO 1.1 (1.0-2.1); ALBUMIN 3.3 g/dL (3.5-5.0); ALT/SGPT 155 U/L (21-72); AST/SGOT 162 U/L (17-59); BLOOD UREA NITROGEN 22 mg/dl (9-20); CALCIUM 8.7 mg/dL (8.4-10.2); GFR AFRICAN-AMERICAN > 60; GFR NON-AFRICAN AMERICAN > 60
[2018-04-11] MEDS: Levothyroxine 100 MCG TAB PO SCH (06:32)
[2018-04-11] MEDS: Ciprofloxacin 400mg/200ml D5W 400 MG/200 ML BAG IVPB SCH (08:59)
[2018-04-11] MEDS: Metoprolol Succinate 50 mg XL Tab PO SCH (09:01)
[2018-04-11] MEDS: Enoxaparin 40 mg Syringe SC SCH (09:02)
[2018-04-11] MEDS: Pantoprazole 40 mg EC Tab PO SCH (09:02)
--- NOTE | 2018-04-11 12:11 | CP.PCM.DIS ---
Provider - Provider Date of Admission: 04/06/18 16:55 Attending physician: Jesse Vilchis MD Time Spent in preparation of Discharge (in minutes): 30 Hospital Course - Lab Results Lab Results: Micro Results 04/06/18 13:55 Blood-Venous Blood Culture - Preliminary NO GROWTH AFTER 4 DAYS 04/06/18 13:55 Blood-Venous Blood Culture - Preliminary NO GROWTH AFTER 4 DAYS 04/07/18 13:13 Blood Blood Culture - Preliminary NO GROWTH AFTER 3 DAYS 04/08/18 06:00 Urine,Whitney Urine Culture - Final Klebsiella Oxytoca Enterococcus Faecalis 04/06/18 16:50 Urine,Clean Catch Urine Culture - Final No Growth (<1,000 CFU/ML) Most Recent Lab Values WBC 8.7 K/uL (4.8-10.8) 04/08/18 04:20 RBC 4.59 Mil/uL (4.40-5.90) 04/08/18 04:20 Hgb 14.5 g/dL (12.0-18.0) 04/08/18 04:20 Hct 43.1 % (35.0-51.0) 04/08/18 04:20 MCV 93.8 fl (80.0-94.0) 04/08/18 04:20 MCH 31.7 pg (27.0-31.0) H 04/08/18 04:20 MCHC 33.8 g/dL (33.0-37.0) 04/08/18 04:20 RDW 15.2 % (11.5-14.5) H 04/08/18 04:20 Plt Count 208 K/uL (130-400) 04/08/18 04:20 MPV 8.7 fl (7.2-11.7) 04/07/18 13:13 Neut % (Auto) 69.1 % (50.0-75.0) 04/07/18 13:13 Lymph % (Auto) 20.2 % (20.0-40.0) 04/07/18 13:13 [place] % (Auto) 10.4 % (0.0-10.0) H 04/07/18 13:13 Eos % (Auto) 0.0 % (0.0-4.0) 04/07/18 13:13 Baso % (Auto) 0.3 % (0.0-2.0) 04/07/18 13:13 Neut # (Auto) 7.3 K/uL (1.8-7.0) H 04/07/18 13:13 Lymph # (Auto) 2.1 K/uL (1.0-4.3) 04/07/18 13:13 [place] # (Auto) 1.1 K/uL (0.0-0.8) H 04/07/18 13:13 Eos # (Auto) 0.0 K/uL (0.0-0.7) 04/07/18 13:13 Baso # (Auto) 0.0 K/uL (0.0-0.2) 04/07/18 13:13 PT 11.6 Seconds (9.8-13.1) 04/07/18 13:13 INR 1.0 (0.9-1.2) 04/07/18 13:13 APTT 30.8 Seconds (25.6-37.1) 04/06/18 14:12 D-Dimer, Quantitative 1702 ng/mlDDU (0-230) H 04/07/18 13:13 pCO2 29 mm/Hg (35-45) L 04/07/18 13:03 pO2 94 mm/Hg (80-100) 04/07/18 13:03 HCO3 21.6 mmol/L (21-28) 04/07/18 13:03 ABG pH 7.42 (7.35-7.45) 04/07/18 13:03 ABG Total CO2 19.7 mmol/L (22-28) L 04/07/18 13:03 ABG O2 Saturation 98.7 % (95-98) H 04/07/18 13:03 ABG Base Excess -4.2 mmol/L (-2.0-3.0) L 04/07/18 13:03 Raman Test Yes 04/07/18 13:03 ABG Potassium 3.7 mmol/L (3.6-5.2) 04/07/18 13:03 VBG pH 7.11 (7.32-7.43) L* 04/06/18 14:16 VBG pCO2 48 mmHg (40-60) 04/06/18 14:16 VBG HCO3 13.1 mmol/L 04/06/18 14:16 VBG Total CO2 16.7 mmol/L (22-28) L 04/06/18 14:16 VBG O2 Sat (Calc) 78.8 % (40-65) H 04/06/18 14:16 VBG Base Excess -14.1 mmol/L (0.0-2.0) L 04/06/18 14:16 A-a O2 Difference 119.0 mm/Hg 04/07/18 13:03 Sodium 135.0 mmol/L (132-148) 04/07/18 13:03 Chloride 106.0 mmol/L (98-107) 04/07/18 13:03 Glucose 124 mg/dL (75-110) H 04/07/18 13:03 Lactate 3.1 mmol/L (0.7-2.1) H 04/07/18 13:03 FiO2 35.0 % 04/07/18 13:03 Blood Gas Comments 3l/m nc,rr 04/07/18 13:03 Crit Value Called To dorian Reid 04/06/18 14:16 Crit Value Called By 22 04/06/18 14:16 Crit Value Read Back N 04/07/18 13:03 Blood Gas Notified Time 1425 04/06/18 14:16 Sodium 135 mmol/l (132-148) 04/11/18 04:20 Potassium 3.6 MMOL/L (3.6-5.0) 04/11/18 04:20 Chloride 100 mmol/L (98-107) 04/11/18 04:20 Carbon Dioxide 25 mmol/L (22-30) 04/11/18 04:20 Anion Gap 14 (10-20) 04/11/18 04:20 BUN 22 mg/dl (9-20) H 04/11/18 04:20 Creatinine 1.0 mg/dl (0.8-1.5) 04/11/18 04:20 Est GFR ( Amer) > 60 04/11/18 04:20 Est GFR (Non-Af Amer) > 60 04/11/18 04:20 POC Glucose (mg/dL) 111 mg/dL (65-110) H 04/09/18 05:28 Random Glucose 113 mg/dL (75-110) H 04/11/18 04:20 Calcium 8.7 mg/dL (8.4-10.2) 04/11/18 04:20 Total Bilirubin 1.1 mg/dl (0.2-1.3) 04/11/18 04:20 AST 162 U/L (17-59) H D 04/11/18 04:20 ALT 155 U/L (21-72) H D 04/11/18 04:20 Alkaline Phosphatase 126 U/L (38-126) 04/11/18 04:20 Total Creatine Kinase 5918 U/L (55-170) H 04/09/18 04:20 Troponin I 0.2710 ng/mL (0.00-0.120) H* 04/07/18 13:13 Total Protein 6.3 G/DL (6.3-8.2) 04/11/18 04:20 Albumin 3.3 g/dL (3.5-5.0) L 04/11/18 04:20 Globulin 3.0 gm/dL (2.2-3.9) 04/11/18 04:20 Albumin/Globulin Ratio 1.1 (1.0-2.1) 04/11/18 04:20 Triglycerides 166 mg/DL (0-149) H 04/07/18 04:20 Cholesterol 154 mg/dL (0-199) 04/07/18 04:20 LDL Cholesterol Direct 81 mg/dL (0-129) 04/07/18 04:20 HDL Cholesterol 26 MG/DL (30-70) L 04/07/18 04:20 Procalcitonin 2.61 NG/ML (0.19-0.49) H 04/07/18 15:37 Free T4 1.05 ng/dL (0.78-2.19) 04/08/18 04:20 TSH 3rd Generation 0.45 mIU/ML (0.46-4.68) L 04/07/18 04:20 Arterial Blood Potassium 3.7 mmol/L (3.6-5.2) 04/07/18 13:03 Urine Color Yellow (YELLOW) 04/09/18 16:34 Urine Clarity Slighty-cloudy (Clear) 04/09/18 16:34 Urine pH 5.0 (5.0-8.0) 04/09/18 16:34 Ur Specific [employer] 1.015 (1.003-1.030) 04/09/18 16:34 Urine Protein Negative mg/dL (NEGATIVE) 04/09/18 16:34 Urine Glucose (UA) Neg mg/dL (Normal) 04/09/18 16:34 Urine Ketones Negative mg/dL (NEGATIVE) 04/09/18 16:34 Urine Blood Moderate (NEGATIVE) 04/09/18 16:34 Urine Nitrate Negative (NEGATIVE) 04/09/18 16:34 Urine Bilirubin Negative (NEGATIVE) 04/09/18 16:34 Urine Urobilinogen 2.0 mg/dL (0.2-1.0) 04/09/18 16:34 Ur Leukocyte Esterase Mod [place]/uL (Negative) 04/09/18 16:34 Urine RBC (Auto) 3 /hpf (0-3) 04/09/18 16:34 Urine Microscopic WBC 56 /hpf (0-5) H 04/09/18 16:34 Ur Squamous Epith Cells < 1 /hpf (0-5) 04/09/18 16:34 Amorphous Sediment Rare /ul (<OCC) H 04/06/18 16:50 Urine Bacteria Many (<OCC) H 04/09/18 16:34 Hyaline Casts 6-10 /hpf (0-2) H 04/09/18 16:34 Granular Casts (Auto) 3 /lpf (0-1) 04/06/18 16:50 Urine Yeast (Budding) Few /hpf (NEGATIVE) H 04/06/18 16:50 Urine Myoglobin TNP 04/06/18 18:10 Free [place] Light Chains 24.3 mg/L (3.3-19.4) H 04/08/18 04:20 Free [place] Light Chain 16.8 mg/L (5.7-26.3) 04/08/18 04:20 Free [place]/Lambda Ratio 1.45 (0.26-1.65) 04/08/18 04:20 - Hospital Course Hospital Course: v7 yo male with history of HTN and previous CVA fell from his bed at around 2pm and was unable to get up until homemaker found him on the floor in the morning. Patient denied LOC or getting injured from the fall. He has been home bound since suffering from stroke leaving him with slurred speech and some right sided weakness. There was no chest pain, SOB or dizziness. 04/07: - PRINCIPAL BIOINFORMATICS SPECIALIST called for acute pulmonary edema due to fluid overload and orthopnea - He became mildly hypoxic, tachypneic, tachycardic, maintaining pressures. - He had received appx 4 liters of fluid over 24 hours. - ECHO showed combined systolic and diastolic dysfunction, patient responded well to lasix and is now comfortable. - Given hypoxia, tachycardia, rhabdo due to fall and extended down time, increasing risk for DVT, dimer was sent and was positive. CTA was negative for PE. - UA was neg on admission, CXR/CT no obvious infiltrates, all cultures negative so far - Lactic acid secondary to rhabdo. 04/09: plan to d/c pt to [facility] however pt suddenly spiked fever - Urine c/s came back + for Klebsiella and Enterococcus Patient treated for UTI, to continue as outpatient. Stable for discharge to [facility] with IV ABX and for further PT. Course as below by problem. 1. Rhabdomyolysis IVF hydration CPK trending down Oral fluid intake renal function normal 2. Elevated Troponin Troponin trended down EKG: sinus tach with left ant fascicular block no previous EKG on board to compare with cont ASA, Toprol and LOsartan cardiology consulted: Dr Cortés 3. UTI ( Klebsiella and Enterococcus) Pt started on IV Ceftriaxone and a dose of IV Vanco given once afebrile , will d/c pt to [facility] on antibiotics for 1 more week 4. HTN BP stable on Toprol and LOsartan, Lasix 5. Acute Pulmonary edema/ acute on chronic systolic and diastolic CHF EF 40%, global hypokinesia on ECHO cont Lasix, LOsartan , Toprol 6. Acute KIdney Injury sec to Rhabdo improved with IVF hydration 7. Hx of CVA cont ASA, statin 8. Chronic Dementia likely vascular since hx of CVA , had some mild dementia DVT prophylaxis venodyne boots while in bed Lovenox Discharge Exam - Head Exam Head Exam: NORMAL INSPECTION, NORMOCEPHALIC - Eye Exam Eye Exam: EOMI, Normal appearance Pupil Exam: NORMAL ACCOMODATION, PERRL - ENT Exam ENT Exam: Mucous Membranes Moist, Normal Exam - Respiratory Exam Respiratory Exam: Clear to PA & Lateral, NORMAL BREATHING PATTERN - Cardiovascular Exam Cardiovascular Exam: REGULAR RHYTHM, +S1, +S2 - GI/Abdominal Exam GI & Abdominal Exam: Normal Bowel Sounds, Soft. absent: Mass, Tenderness - Extremities Exam Extremities exam: normal capillary refill, normal inspection - Back Exam Back exam: absent: CVA tenderness (L), CVA tenderness (R) - Neurological Exam Neurological exam: Alert, Reflexes Normal - Psychiatric Exam Psychiatric exam: Normal Affect, Normal Mood - Skin Skin Exam: Dry, Warm Discharge Plan - Discharge Medications Prescriptions: ALPRAZolam [Xanax] 0.25 mg PO BID #1 tab cefTRIAXone 1 gm [Rocephin 1 gram IVPB (D5W)] 1 gm IVPB DAILY #6 bag Metoprolol Succinate XL [Toprol XL] 50 mg PO DAILY #1 tab - Follow Up Plan Condition: STABLE Disposition: TRANSF TO SNF Instructions: Dehydration, Adult (DC), Rhabdomyolysis (DC), Heart Failure (DC) , Heart Failure (GEN), Pacemaker (DC), Pacemaker (GEN), Pulmonary Edema (DC), Pulmonary Edema (GEN), Ascites (DC), Ascites (GEN) Additional Instructions: ff up with PMD in 1-2 wks Referrals: Armando Devine MD [Medical Doctor] -
[2018-04-11 12:20] VITALS: O2SAT 97
[2018-04-11 15:35] VITALS: BP 112/65; PULSE 96; TEMP 98
== END 2018-04-11 16:10 | DRG 564 ==
LOC: H.ER 13:25 → H.ERHOLD 16:55 → H.TEL 19:00
DX: T79.6XXA Traumatic ischemia of muscle, initial encounter (principal); I50.43 Acute on chronic combined systolic (congestive) and diastolic (congestive) heart failure; I69.351 Hemiplegia and hemiparesis following cerebral infarction affecting right dominant side; N17.9 Acute kidney failure, unspecified; N39.0 Urinary tract infection, site not specified; W06.XXXA Fall from bed, initial encounter; Z74.01 Bed confinement status; I69.328 Other speech and language deficits following cerebral infarction; D72.829 Elevated white blood cell count, unspecified; E86.0 Dehydration; I69.321 Dysphasia following cerebral infarction; I11.0 Hypertensive heart disease with heart failure; I44.4 Left anterior fascicular block; F43.9 Reaction to severe stress, unspecified; R09.02 Hypoxemia; R79.89 Other specified abnormal findings of blood chemistry; F01.50 Vascular dementia, unspecified severity, without behavioral disturbance, psychotic disturbance, mood disturbance, and anxiety; B96.1 Klebsiella pneumoniae [K. pneumoniae] as the cause of diseases classified elsewhere; B95.2 Enterococcus as the cause of diseases classified elsewhere; M16.0 Bilateral primary osteoarthritis of hip; Y92.003 Bedroom of unspecified non-institutional (private) residence as the place of occurrence of the external cause; M47.9 Spondylosis, unspecified